=== PATIENT | male | born 1950 | race Caucasian/White ===

== ENCOUNTER 2017-05-06 14:57 | Inpatient (IN) | payer MEDICAID, MEDICARE ==
[2017-05-06 16:23] LABS: Hematocrit 40 % (42-52); Hemoglobin 13.4 g/dl (14.0-18.0); Mean Corpuscular HGB Conc 34 g/dl (31-36); Mean Corpuscular Hemoglobin 30 pg (27-31); Mean Corpuscular Volume 90 fL (80-94); Mean Platelet Volume 8 um3 (7.4-10.4); Red Blood Count 4.44 10^6/ul (4.0-5.4); Red Cell Distribution Width 13 % (10.5-15); White Blood Count 7.8 10^3/ul (3.5-10.8)
[2017-05-06 16:26] LABS: Urine Bilirubin Negative (Negative); Urine Glucose Negative (Negative); Urine Nitrite Negative (Negative)
[2017-05-06 16:35] LABS: ALT 19 U/L (7-52); AST 19 U/L (13-39); Albumin 4.1 g/dL (3.2-5.2); Alkaline Phosphatase 94 U/L (34-104); Anion Gap 7 mmol/L (2-11); BUN/Creatinine Ratio 12.9 (8-20); Blood Urea Nitrogen 24 mg/dL (6-24); CO2 Carbon Dioxide 22 mmol/L (22-32); Chloride 103 mmol/L (101-111); EGFR African American 46.6 (>60); EGFR Non-African American 36.2 (>60); Globulin 2.2 g/dL (2-4); Glucose 128 mg/dL (70-100); Potassium 4.6 mmol/L (3.5-5.0); Sodium 132 mmol/L (133-145); Total Protein 6.3 g/dL (6.4-8.9)
--- NOTE | 2017-05-06 16:36 | RAD ---
INDICATION: Unsteady gait COMPARISON: Similar CT of the brain dated September 29, 2014 TECHNIQUE: Contiguous axial sections of the brain were obtained from the skull base to the vertex without contrast. FINDINGS: The ventricles, cisterns and sulci are within normal limits. The rod-white matter differentiation is adequately maintained and there is no sulcal effacement. No significant focal abnormality or mass effect is present. There is no evidence for intracranial hemorrhage. No significant focal osseous abnormality is present. The visualized portion of the paranasal sinuses and mastoid air cells appear clear. Cerumen is noted in the bilateral external auditory canals, larger on the left than the right. IMPRESSION: 1. No acute intracranial abnormality. 2.Cerumen is noted in the bilateral external auditory canals, larger on the left than the right. Please correlate to direct visualization.
[2017-05-06 16:42] LABS: Acetaminophen < 15 mcg/mL; Alcohol < 10 mg/dL (<10); Salicylate < 2.50 mg/dL (<30)
[2017-05-06 16:45] LABS: Benzodiazepine Urine Screen None Detected (None Detect)
[2017-05-06 16:57] LABS: TSH (Thyroid Stimulating Horm) 2.78 mcIU/mL (0.34-5.60)
[2017-05-07] MEDS ORDERED: Al Hydrox/Mg Hydrox/Simet LIQ* 30 ML UDC PO PRN (02:00)
[2017-05-07] MEDS ORDERED: Acetaminophen TAB* 325 MG PO PRN (02:00)
[2017-05-07] MEDS: Levothyroxine TAB* 125 MCG TAB PO SCH (06:07)
--- NOTE | 2017-05-07 08:29 | ED ---
Cash Canales Angela, scribed for Mandeep Hughes MD on 05/06/17 at 1527 . Psychiatric Complaint - HPI Summary HPI Summary: This pt is a 67 y/o male accompanied by his sister to [facility] c/o SI thoughts for the past 2 weeks. Pt reports he has been a [facility] health patient for 47 years now , which has been controlled with medications. Pt notes he has been suicidal only once before. He states that his SI thoughts have been aggravated by the recent of his mother 2 weeks ago. Pt reports that he has difficulty sleeping just thinking about dying, which scares him. Per sister, the of their mother has altered his normal routine. He denies HI thoughts or plan. Pt additionally c/o losing his balance and getting vertigo after standing up. PMHx includes schizophrenia. - History Of Current Complaint Chief Complaint: [facility] Time Seen by Provider: 05/06/17 15:09 Hx Obtained From: Patient Onset/Duration: Lasting Weeks, Still Present Timing: Weeks Character: Depressed, Fearful Aggravating Factor(s): Other - recent of mother Associated Signs And Symptoms: Positive: Sleep Disturbance Has Suicidal: Reports: Thoughts. Denies: With A Plan Has Homicidal: Denies: Thoughts, With A Plan - Allergies/Home Medications Allergies/Adverse Reactions: Allergies Allergy/AdvReac Type Severity Reaction Status Date / Time Chlordiazepoxide Allergy Unknown Unknown Verified 09/29/14 10:02 [From Librium] Reaction Details [place] Allergy Unknown Unknown Verified 09/29/14 10:02 Reaction Details Oxcarbazepine Allergy Unknown Unknown Verified 09/29/14 10:02 [From Trileptal] Reaction Details PMH/Surg Hx/FS Hx/Imm Hx Endocrine/Hematology History: Reports: Hx Thyroid Disease Cardiovascular History: Reports: Hx Hypertension History: Reports: Other Problems/Disorders - Chronic Kidney DX Psychiatric History: Denies: Hx Eating Disorder, Hx of Violent Episodes Against Others - Surgical History Surgery Procedure, Year, and Place: surgery for diverticulitis 'many yrs ago' Infectious Disease History: No Infectious Disease History: Denies: Traveled Outside the [place] in Last 30 Days - Family History Known Family History: Positive: Other - paternal grandmother: schizophrenia - Social History Alcohol Use: Daily Substance Use Type: Reports: None Smoking Status (MU): Former Smoker Review of Systems Constitutional: Other - losing balance, difficulty sleeping Negative: Fever, Chills Eyes: Negative ENT: Negative Cardiovascular: Negative Neurological: Other - vertigo Psychological: Other - SI thoughts, fearful Negative: Other - HI thoughts and plan All Other Systems Reviewed And Are Negative: Yes Physical Exam - Summary Physical Exam Summary: VITAL SIGNS: Reviewed. GENERAL: Patient is a well-developed and nourished male who is lying comfortable in the stretcher. Patient is not in any acute respiratory distress. HEAD AND FACE: No signs of trauma. No ecchymosis, hematomas or skull depressions. No sinus tenderness. EYES: PERRLA, EOMI x 2, No injected conjunctiva, no nystagmus. EARS: Hearing grossly intact. Ear canals and tympanic membranes are within normal limits. MOUTH: Oropharynx within normal limits. NECK: Supple, trachea is midline, no adenopathy, no JVD, no carotid bruit, no c- spine tenderness, neck with full ROM. CHEST: Symmetric, no tenderness at palpation LUNGS: Clear to auscultation bilaterally. No wheezing or crackles. CVS: Regular rate and rhythm, S1 and S2 present, no murmurs or gallops appreciated. ABDOMEN: Soft, non-tender. No signs of distention. No rebound no guarding, and no masses palpated. Bowel sounds are normal. EXTREMITIES: FROM in all major joints, no edema, no cyanosis or clubbing. NEURO: Alert and oriented x 3. No acute neurological deficits. Speech is normal and follows commands. SKIN: Dry and warm Triage Information Reviewed: Yes Vital Signs On Initial Exam: Initial Vitals Temp Pulse Resp BP Pulse Ox 97.6 F 92 18 148/85 98 05/06/17 15:04 05/06/17 15:04 05/06/17 15:04 05/06/17 15:04 05/06/17 15:04 Vital Signs Reviewed: Yes - Teri Coma Scale Coma Scale Total: 15 Diagnostics - Vital Signs Vital Signs Temp Pulse Resp BP Pulse Ox 05/06/17 15:04 97.6 F 92 18 148/85 98 - Laboratory Result Diagrams: 05/06/17 16:12 05/06/17 16:12 Lab Statement: Any lab studies that have been ordered have been reviewed, and results considered in the medical decision making process. - CT Brain CT CT Interpretation: Positive (See Comments) - IMPRESSION: 1. No acute intracranial abnormality. 2. Cerumen is noted in the bilateral external auditory canals, larger on the left than the right. Please correlate to direct visualization. ED physician has reviewed this radiology report and agrees. CT Interpretation Completed By: Radiologist Course/Dx - Course Assessment/Plan: This pt is a 67 y/o male accompanied by his sister to [facility] c/ o SI thoughts for the past 2 weeks. Pt reports he has been a [facility] patient for 47 years now, which has been controlled with medications. Pt notes he has been suicidal only once before. He states that his SI thoughts have been aggravated by the recent of his mother 2 weeks ago. Pt reports that he has difficulty sleeping just thinking about dying, which scares him. Per sister , the of their mother has altered his normal routine. He denies HI thoughts or plan. Pt additionally c/o losing his balance and getting vertigo after standing up. PMHx includes schizophrenia. All blood work within normal limits. CT brain shows 1. No acute intracranial abnormality. 2. Cerumen is noted in the bilateral external auditory canals, larger on the left than the right. Please correlate to direct visualization. Pt is medically cleared at 1702. Pt is wating for MHE. He will be signed out to the next ER attending to follow up on mental health inspector and sorter's recommendation. - Differential Dx/Clinical Impression Provider Diagnosis: Suicidal ideation Discharge - Discharge Plan Condition: Stable Disposition: OTHER Discharge Disposition Comment: signed out at shift change, pending dispo, awaiting [facility]. Referrals: Raulito Romero MD [Primary Care Provider] - The documentation as recorded by the Cash hewitt Angela accurately reflects the service I personally performed and the decisions made by me, Mandeep Hughes MD.
[2017-05-07] MEDS: Gabapentin CAP(*) 100 MG PO SCH ×3 (09:05→19:56)
[2017-05-07] MEDS: Famotidine TAB* 20 MG PO SCH (09:07)
[2017-05-07] MEDS: Folic Acid TAB* 1 MG PO SCH (09:07)
[2017-05-07] MEDS: Metoprolol Succinate XL TAB* 50 MG PO SCH (09:08)
[2017-05-07] MEDS: Thiamine TAB* 100 MG TAB PO SCH (09:08)
[2017-05-07] MEDS: Vitamin THERAPEUTIC TAB PO SCH (09:08)
[2017-05-07] MEDS: Lisinopril TAB* 10 MG PO SCH (09:08)
[2017-05-07] MEDS: Tamsulosin CAP* 0.4 MG PO SCH (09:08)
--- NOTE | 2017-05-07 16:24 | HP ---
HISTORY AND PHYSICAL: DATE OF ADMISSION: 05/06/17 TIME OF ADMISSION: At 2253. SUPERVISING PSYCHIATRIST: Bret Rodriguez MD * (DICTATED BY MAHIN TIERNEY NP) JUSTIFICATION FOR ADMISSION: The patient admitted on voluntary status due to severe suicidal ideation with a plan. He has a history of schizophrenia and OCD along with medical comorbidities. He merits hospitalization for immediate safety, evaluation, and stabilization. CHIEF COMPLAINT: "Today, this is only the second time in my life I have been suicidal." HISTORY OF PRESENT ILLNESS: The patient is well known to service writer and to unit due to multiple previous psychiatric hospitalizations, chronic schizoaffective disorder, alcohol abuse, in remission. The patient states he is very proud of himself that he has been sober since 09/29/14. He identifies that he is much more mentally stable without overuse of alcohol. He states that he has been medication compliant and denies schizophrenic problem since starting clozapine, started that at [facility]. At that same time, he also underwent ECT. The patient reports his primary stressor this hospitalization is that his mother 2 weeks ago under the care of hospice. Since then, he has had an increase in OCD symptoms and suicidal ideation. He states that he is very very afraid and overwhelmed with having to care for himself. The patient reports enjoying living at the [facility], but that he needs "a couple of days to myself and some space." He reports his mood has been up and down, today it is okay. He states for the past few nights, he has had poor sleep approximately anywhere from 2 to 4 hours per night. He denies offer of medication to help with sleep. He states that he is already on too many medications as it is. This service writer meets with Omer over the lunch hour and he has been visited by his sister and healthcare proxy, Candelaria. They reviewed the time period of the last few weeks and their mother's decline in health. They are able to express appropriate bereavement, emotions and discuss positive memories of their mother. The patient is noted to discuss clozapine regimen and that he is very satisfied with this. He states that this has "solved my schizophrenic problems. " The patient states that he was significantly frightened the other night when he had severe thoughts of suicide and asked to be brought to the hospital. He denies A/V hallucinations. He denies delusions, paranoia. As stated above, he endorses obsessive-compulsive behaviors. He identifies that these thoughts and behaviors are significantly related to the loss of his mother. Previous psychiatric history, diagnosis of chronic psychotic disorder, schizoaffective disorder. He had an onset of his illness in the first year of college leading to a long psychiatric hospitalization. He has been treated at [facility] in [place] and [facility] for ECT therapy. He has had multiple psychiatric admissions to [facility]. His most recent was in September 2014. At that time, his primary stressor was alcoholism. Previous medication trials include lithium, which led to nephrotoxicity, Klonopin, Wellbutrin, quetiapine, Stelazine. He denies danielle suicide attempts. PAST MEDICAL HISTORY: History of lithium nephrotoxicity, hypertension, hypothyroidism, and BPH. ABUSE HISTORY: Denies. SUBSTANCE USE HISTORY: Experimented with hallucinogens in the 60s and has used marijuana on and off over the years. His alcohol intake became problematic especially in 2013 and 2014 and as stated above, he has been sober and clean since September 2014. He is 6 feet 1 inches, approximately 230 pounds. ALLERGIES: Include LITHIUM, TEGRETOL, and CHLORDIAZEPOXIDE. SOCIAL HISTORY: Omer is from the [facility]. He has 2 sisters, who are involved and he lives alone in the [facility]. He has been going to [facility] for many years and currently sees Maria Del Carmen Slaughter. He is on disability. He is never and has no children. He is educated through first year of college. FAMILY HISTORY: His father has been . His mother 2 weeks ago. REVIEW OF SYSTEMS: Constitutional: Negative. No fevers, chills, or fatigue. ENT: Negative. Cardiovascular: Negative. Denies chest pain or palpitations. Respiratory: Negative. Denies shortness of breath or cough. Genitourinary: Negative. Musculoskeletal: Negative. Neurological: Negative. PHYSICAL EXAMINATION GENERAL: Well appearing and well nourished. VITAL SIGNS: Temp 98.2, pulse 104, respiration rate 16, O2 saturation 100%, BP 115/74. HEENT: Head and face: No signs of trauma. No ecchymosis, hematomas, or skull depressions. No sinus tenderness. Eyes: PERRLA. EOMI x2. Conjunctivae clear. Ears: Hearing grossly intact. Mouth, oropharynx within normal limits. Mucous membranes are moist. NECK: Supple. Trachea is midline. Full ROM. RESPIRATORY: Chest symmetric. No tenderness at palpation. Lungs clear to auscultation. CARDIOVASCULAR: Heart RRR. Pulses are symmetrical in both upper and lower extremities. ABDOMEN: Soft, nontender. Bowel sounds x4. EXTREMITIES: Full range of motion in all major joints. NEURO: Alert and oriented x3. Gait is normal. SKIN: Warm and dry. Color reflects adequate perfusion. MENTAL STATUS EXAM: Elderly white male who is well kempt in his own clothing. He has a large marcelo and well groomed rod hair. He is wearing large spectacles. His eye contact is good. His speech is soft and articulate, regular rhythm. He describes his mood is okay. His affect is bright upon approach. His thought process is logical, coherent. There is no evidence of disordered thinking at this time. Thought content is positive for suicidal ideation and bereavement. He is alert and oriented x3. Insight and judgment is good and fund of knowledge is excellent. LABORATORY DATA: CBC is grossly unremarkable, slightly low H and H at 13.4 and 40. Chemistry, 132 sodium, creatinine 1.86, glucose 128. Total protein 6.3. TSH normal at 2.78. Urinalysis is within normal limits. Toxicology negative for salicylates, acetaminophen, and serum alcohol and urine drug screen is negative. DIAGNOSES: 1. Bereavement. 2. Schizoaffective disorder. 3. Alcohol use disorder, in remission. 4. Hypertension. 5. Hypothyroidism. 6. Benign prostatic hypertrophy. ASSESSMENT: Mr. Neville is a 67-year-old white male with a long history of chronic schizoaffective disorder and alcohol use disorder, now in remission for 2 and a half years. His mother 2 weeks ago and he has had increasing suicidal ideations that have frightened him. He is overwhelmed with the thought of having to care for himself. He lives in [facility] and likes this. He reports feeling supported but also wants to have some time and space to himself to grieve for a few days. He is on clozapine protocol and no changes are necessary at this time. TREATMENT PLAN: Admit to adult behavioral services unit on voluntary status. Code status is full. Safety checks every 15 minutes, can be decreased to q.30 minutes after 24 hours of admission. Initiate intensive milieu and individual sessions with staff and psychoeducational groups. Medication management will involve continuing his outpatient regimen and he denies need for medication changes at this time. Estimated length of stay is 3 to 5 days. Discharge planning will involve [facility], family and outpatient providers with the patient's consent. MAHIN TIERNEY NP [id number]/CPS #: [id number] BOB
[2017-05-07] MEDS: CloZAPine TAB* 100 MG TAB PO SCH (19:55)
[2017-05-08] MEDS: Levothyroxine TAB* 125 MCG TAB PO SCH (06:07)
[2017-05-08] MEDS: Tamsulosin CAP* 0.4 MG PO SCH (08:38)
[2017-05-08] MEDS: Famotidine TAB* 20 MG PO SCH (08:38)
[2017-05-08] MEDS: Metoprolol Succinate XL TAB* 50 MG PO SCH (08:38)
[2017-05-08] MEDS: Vitamin THERAPEUTIC TAB PO SCH (08:38)
[2017-05-08] MEDS: Lisinopril TAB* 10 MG PO SCH (08:38)
[2017-05-08] MEDS: Gabapentin CAP(*) 100 MG PO SCH ×3 (08:38→20:24)
[2017-05-08] MEDS: Folic Acid TAB* 1 MG PO SCH (08:38)
[2017-05-08] MEDS: Thiamine TAB* 100 MG TAB PO SCH (08:39)
--- NOTE | 2017-05-08 14:44 | PN ---
Subjective - Subjective Service Type: 36157 Hosp care 15 min low complexity Subjective: The patient feels safe here on the unit. He is in the day area, going to groups and appears to be calm and in control of his actions. On exam he states that he is quite grieved by the recent of his mother and that he doesn't need any changes in his medications, but just needs a setting to be with his emotions and not be alone. He denies SI or HI. "It's not medical or schizophrenic what I'm going through. ""They used the word 'bereavement' in the Emergency Room and that's just what I'm going through." Objective - Appearance Appearance: Well Developed/Nourished Dysmorphic Features: No Hygiene: Normal Grooming: Well Kept - Behavior Psychomotor Activities: Normal Exhibits Abnormal Movement: No - Attitude and Relatedness Attitude and Relatedness: Cooperative Eye Contact: Fair - Speech Quality: Unpressured Latencies: Normal Quantity: Appropriate - Mood Patient's Decription of Mood: "Sad" - Affect Observed Affect: Fair Affect Consistent with: Dysphoria - Thought Process Patient's Thought Process: Coherent Thought Content: No Passive Wish, No Suicidal Planning, No Homicidal Ideation, No Paranoid Ideation - Sensorium Experiencing Hallucinations: No, Sensorium is Clear Type of Hallucinations: Visual: No, Auditory: No, Command: No - Level of Consciousness Level of Consciousness: Alert Orientation: Yes Intact, Yes Orientated to Time, Yes Orientated to Place, Yes Orientated to Person - Impulse Control Impulse Control: Tenuous - Insight and Judgement Insight and Judgement: Fair - Group Participation Particating in Group Activities: Yes - Medication Management Medication Management Adherence: Yes Assessment - Assessment Merits Inpatient Hospitalization: Consolidate Improvements, Pending Safe DC Plan Inpatient DSM-IV Dx: Schizophrenia Clinical Impression: 67 y.o. white male with a history of schizoaffective DO presented to ED, seeking voluntary admission to the [facility] for extreme grief over the recent of his mother and suicidal ideations. Plan - Plan Treatment Plan: Name: SCOTT TUCKER Birthdate: 1950 [id number] We have continued the patient's outpatient medication regimen, including clozapine 300mg PO qhs and gabapentin 100mg PO TID. He is going to groups and participating in milieu supportive care. Continue inpatient level services. Medications: Current Medications Acetaminophen (Tylenol Tab*) 650 mg PO Q4H PRN PRN Reason: PAIN or TEMP > 101 F Al Hydrox/Mg Hydrox/Simethicone (Maalox Plus*) 30 ml PO Q4H PRN PRN Reason: INDIGESTION Clozapine (Clozapine Tab*) 300 mg PO BEDTIME [facility] Last Admin: 05/07/17 19:55 Dose: 300 mg Famotidine (Pepcid Tab*) 20 mg PO DAILY [facility] Last Admin: 05/08/17 08:38 Dose: 20 mg Folic Acid (Folvite Tab*) 1 mg PO DAILY [facility] Last Admin: 05/08/17 08:38 Dose: 1 mg Gabapentin (Neurontin Cap(*)) 100 mg PO TID [facility] Last Admin: 05/08/17 13:23 Dose: 100 mg Levothyroxine Sodium (Synthroid Tab*) 125 mcg PO DAILY@0600 [facility] Last Admin: 05/08/17 06:07 Dose: 125 mcg Lisinopril [facility]inivil [facility]*) [facility] Admin: 05/08/17 08:38 Dose: 20 mg Metoprolol Succinate (Toprol Xl Tab*) [facility] [place] Last Admin: 05/08/17 08:38 Dose: 50 mg Multivitamins (Theragran Tab*) 1 tab PO DAILY [facility] Last Admin: 05/08/17 08:38 Dose: 1 tab Tamsulosin HCl (Flomax Cap*) [facility] [place] Last Admin: 05/08/17 08:38 Dose: 0.4 mg Thiamine HCl (Vitamin B-1 Tab*) [facility] [place] [place] Last Admin: 05/08/17 08:39 Dose: 100 mg
[2017-05-08] MEDS: CloZAPine TAB* 100 MG TAB PO SCH (20:23)
[2017-05-09] MEDS: Levothyroxine TAB* 125 MCG TAB PO SCH (06:30)
[2017-05-09] MEDS: Folic Acid TAB* 1 MG PO SCH (08:44)
[2017-05-09] MEDS: Lisinopril TAB* 10 MG PO SCH (08:44)
[2017-05-09] MEDS: Tamsulosin CAP* 0.4 MG PO SCH (08:44)
[2017-05-09] MEDS: Famotidine TAB* 20 MG PO SCH (08:44)
[2017-05-09] MEDS: Vitamin THERAPEUTIC TAB PO SCH (08:44)
[2017-05-09] MEDS: Metoprolol Succinate XL TAB* 50 MG PO SCH (08:45)
[2017-05-09] MEDS: Gabapentin CAP(*) 100 MG PO SCH ×3 (08:45→20:11)
[2017-05-09] MEDS: Thiamine TAB* 100 MG TAB PO SCH (08:45)
[2017-05-09] MEDS: CloZAPine TAB* 100 MG TAB PO SCH (20:10)
[2017-05-10] MEDS: Levothyroxine TAB* 125 MCG TAB PO SCH (06:00)
[2017-05-10 08:10] LABS: HDL Cholesterol 46.9 mg/dL
[2017-05-10] MEDS: Vitamin THERAPEUTIC TAB PO SCH (08:26)
[2017-05-10] MEDS: Folic Acid TAB* 1 MG PO SCH (08:27)
[2017-05-10] MEDS: Metoprolol Succinate XL TAB* 50 MG PO SCH (08:27)
[2017-05-10] MEDS: Tamsulosin CAP* 0.4 MG PO SCH (08:27)
[2017-05-10] MEDS: Gabapentin CAP(*) 100 MG PO SCH ×3 (08:27→20:09)
[2017-05-10] MEDS: Famotidine TAB* 20 MG PO SCH (08:27)
[2017-05-10] MEDS: Lisinopril TAB* 10 MG PO SCH (08:28)
[2017-05-10] MEDS: Thiamine TAB* 100 MG TAB PO SCH (08:28)
--- NOTE | 2017-05-10 11:41 | PN ---
MHU: Group Therapy Note - Service Type Service Type: [id number] Group Psychotherapy - Cognitive Behavioral Group Therapy ( CBT):Patient was attentive and participatory in CBT programming this morning, and remained in good behavioral control. Patient expressed positive insights regarding relevant treatment interventions and goals.
--- NOTE | 2017-05-10 15:17 | PN ---
Subjective - Subjective Service Type: 46477 Hosp care 15 min low complexity Subjective: Patient presents as dysphoric, pleasant upon approach. He reports continued grief re: mother's . He states he woke with the thought "mommy is , there's no other way around it." He states he expects to remain in hospital until feeling more safe to return to [facility]. Patient states he is sleeping well and benefitting from "catching up on sleep." Patient met with his sister and hospice therapist over lunch. They are beginning to settle his mother's estate and will be bringing a probate to notarize paperwork. Patient, his sister and treatment team are in agreement that Al is at full capacity to do so and that this environment is the optimal setting. Objective - Appearance Appearance: Well Developed/Nourished Dysmorphic Features: Yes Hygiene: Normal Grooming: Well Kept - Behavior Psychomotor Activities: Normal Exhibits Abnormal Movement: No - Attitude and Relatedness Attitude and Relatedness: Cooperative Eye Contact: Good - Speech Quality: Unpressured Latencies: Normal Quantity: Appropriate - Mood Patient's Decription of Mood: "Sad" - Affect Observed Affect: Good Affect Consistent with: Dysphoria - Thought Process Patient's Thought Process: Coherent, Goal Directed Thought Content: No Passive Wish, No Suicidal Planning, No Homicidal Ideation, No Paranoid Ideation - Sensorium Experiencing Hallucinations: No, Sensorium is Clear Type of Hallucinations: Visual: No, Auditory: No, Command: No - Level of Consciousness Level of Consciousness: Alert Orientation: Yes Intact, Yes Orientated to Time, Yes Orientated to Place, Yes Orientated to Person - Impulse Control Impulse Control: Intact - Insight and Judgement Insight and Judgement: Good - Group Participation Particating in Group Activities: Yes - Medication Management Medication Management Adherence: Yes Assessment - Assessment Merits Inpatient Hospitalization: For Immediate Safety, For Stabilization, Consolidate Improvements, Pending Safe DC Plan Inpatient DSM-IV Dx: Schizophrenia; bereavement Clinical Impression: Scott is a 67yo white male with long hx of psychiatric treatment. He is currently grieving the of his mother two weeks ago. He presented voluntarily due to severe SI. He merits hospitalization for immediate safety and stabilization. Plan - Plan Treatment Plan: Name: SCOTT TUCKER Birthdate: 1950 [id number] Continue acute psychiatric treatment. Continue outpatient medications. Decrease to q30min observation and allow staff pass. Continued Medication Management: Continue Outpt Medication Medications: Current Medications Acetaminophen (Tylenol Tab*) 650 mg PO Q4H PRN PRN Reason: PAIN or TEMP > 101 F Al Hydrox/Mg Hydrox/Simethicone (Maalox Plus*) 30 ml PO Q4H PRN PRN Reason: INDIGESTION Clozapine (Clozapine Tab*) 300 mg PO BEDTIME [facility] Last Admin: 05/09/17 20:10 Dose: 300 mg Famotidine (Pepcid Tab*) 20 mg PO DAILY [facility] Last Admin: 05/10/17 08:27 Dose: 20 mg Folic Acid (Folvite Tab*) 1 mg PO DAILY [facility] Last Admin: 05/10/17 08:27 Dose: 1 mg Gabapentin (Neurontin Cap(*)) 100 mg PO TID [facility] Last Admin: 05/10/17 13:40 Dose: 100 mg Levothyroxine Sodium (Synthroid Tab*) 125 mcg PO DAILY@0600 [facility] Last Admin: 05/10/17 06:00 Dose: 125 mcg Lisinopril (Prinivil Tab*) 20 mg PO QAM [facility] Last Admin: 05/10/17 08:28 Dose: 20 mg Metoprolol Succinate (Toprol Xl Tab*) [facility] Last Admin: 05/10/17 08:27 Dose: 50 mg Multivitamins (Theragran Tab*) 1 tab PO DAILY [facility] Last Admin: 05/10/17 08:26 Dose: 1 tab Tamsulosin HCl (Flomax Cap*) 0.4 mg PO [facility] Last Admin: 05/10/17 08:27 Dose: 0.4 mg Thiamine HCl (Vitamin B-1 Tab*) 100 mg PO QAM [facility] Last Admin: 05/10/17 08:28 Dose: 100 mg - Discharge Plan Discharge Plan: Outpatient Follow Up Outpatient Program: [facility]
[2017-05-10] MEDS: CloZAPine TAB* 100 MG TAB PO SCH (20:09)
[2017-05-11] MEDS: Levothyroxine TAB* 125 MCG TAB PO SCH (06:15)
[2017-05-11] MEDS: Metoprolol Succinate XL TAB* 50 MG PO SCH (08:13)
[2017-05-11] MEDS: Vitamin THERAPEUTIC TAB PO SCH (08:13)
[2017-05-11] MEDS: Tamsulosin CAP* 0.4 MG PO SCH (08:13)
[2017-05-11] MEDS: Famotidine TAB* 20 MG PO SCH (08:14)
[2017-05-11] MEDS: Gabapentin CAP(*) 100 MG PO SCH ×3 (08:14→20:14)
[2017-05-11] MEDS: Thiamine TAB* 100 MG TAB PO SCH (08:14)
[2017-05-11] MEDS: Folic Acid TAB* 1 MG PO SCH (08:14)
[2017-05-11] MEDS: Lisinopril TAB* 10 MG PO SCH (08:14)
--- NOTE | 2017-05-11 11:33 | PN ---
MHU: Group Therapy Note - Service Type Service Type: [id number] Group Psychotherapy - Cognitive Behavioral Group Therapy ( CBT):Patient was attentive and participatory in CBT programming this morning, and remained in good behavioral control. Patient expressed positive insights regarding relevant treatment interventions and goals.
--- NOTE | 2017-05-11 17:13 | PN ---
Subjective - Subjective Service Type: [id number] Hosp care 15 min low complexity Subjective: Patient presents as dysphoric with restricted affect. He is pleasant upon approach. He states that he is no longer having suicidal ideation but is concerned about loneliness and grief upon return home. He states that milieu and structure of groups are helpful. Objective - Appearance Appearance: Well Developed/Nourished Dysmorphic Features: Yes Hygiene: Normal Grooming: Well Kept - Behavior Psychomotor Activities: Normal Exhibits Abnormal Movement: No - Attitude and Relatedness Attitude and Relatedness: Cooperative Eye Contact: Good - Speech Quality: Unpressured Latencies: Normal Quantity: Appropriate - Mood Patient's Decription of Mood: "Okay" - Affect Observed Affect: Depressed Affect Consistent with: Dysphoria - Thought Process Patient's Thought Process: Coherent, Goal Directed Thought Content: No Passive Wish, No Suicidal Planning, No Homicidal Ideation, No Paranoid Ideation - Sensorium Experiencing Hallucinations: No, Sensorium is Clear Type of Hallucinations: Visual: No, Auditory: No, Command: No - Level of Consciousness Level of Consciousness: Alert Orientation: Yes Intact, Yes Orientated to Time, Yes Orientated to Place, Yes Orientated to Person - Impulse Control Impulse Control: Tenuous - Insight and Judgement Insight and Judgement: Good - Group Participation Particating in Group Activities: Yes - Medication Management Medication Management Adherence: Yes Assessment - Assessment Merits Inpatient Hospitalization: For Immediate Safety, For Stabilization, Consolidate Improvements Inpatient DSM-IV Dx: Schizophrenia; bereavement Clinical Impression: Scott is a 67yo white male with long hx of psychiatric treatment. He is currently grieving the of his mother two weeks ago. He presented voluntarily due to severe SI. He merits hospitalization for immediate safety and stabilization. Plan - Plan Treatment Plan: Name: SCOTT TUCKER Birthdate: 1950 [id number] Continue acute psychiatric treatment. Continue outpatient medications. Decrease to q30min observation and allow staff pass. Continued Medication Management: Continue Outpt Medication Medications: Current Medications Acetaminophen (Tylenol Tab*) 650 mg PO Q4H PRN PRN Reason: PAIN or TEMP > 101 F Al Hydrox/Mg Hydrox/Simethicone (Maalox Plus*) 30 ml PO Q4H PRN PRN Reason: INDIGESTION Clozapine (Clozapine Tab*) 300 mg PO BEDTIME [facility] Last Admin: 05/10/17 20:09 Dose: 300 mg Famotidine (Pepcid Tab*) 20 mg PO DAILY [facility] Last Admin: 05/11/17 08:14 Dose: 20 mg Folic Acid (Folvite Tab*) 1 mg PO DAILY [facility] Last Admin: 05/11/17 08:14 Dose: 1 mg Gabapentin (Neurontin Cap(*)) 100 mg PO TID [facility] Last Admin: 05/11/17 13:54 Dose: 100 mg Levothyroxine Sodium (Synthroid Tab*) 125 mcg PO DAILY@0600 [facility] Last Admin: 05/11/17 06:15 Dose: 125 mcg Lisinopril (Prinivil Tab*) 20 mg PO QAM [facility] Last Admin: 05/11/17 08:14 Dose: 20 mg Metoprolol Succinate (Toprol Xl Tab*) 50 mg PO QAM [facility] Last Admin: 05/11/17 08:13 Dose: 50 mg Multivitamins (Theragran Tab*) 1 tab PO DAILY [facility] Last Admin: 05/11/17 08:13 Dose: 1 tab Tamsulosin HCl (Flomax Cap*) [facility] Last Admin: 05/11/17 08:13 Dose: 0.4 mg Thiamine HCl (Vitamin B-1 Tab*) 100 mg PO QAM [facility] Last Admin: 05/11/17 08:14 Dose: 100 mg - Discharge Plan Discharge Plan: Outpatient Follow Up Outpatient Program: [facility]
[2017-05-11] MEDS: CloZAPine TAB* 100 MG TAB PO SCH (20:15)
[2017-05-12] MEDS: Levothyroxine TAB* 125 MCG TAB PO SCH (06:35)
[2017-05-12] MEDS: Tamsulosin CAP* 0.4 MG PO SCH (08:32)
[2017-05-12] MEDS: Lisinopril TAB* 10 MG PO SCH (08:32)
[2017-05-12] MEDS: Metoprolol Succinate XL TAB* 50 MG PO SCH (08:32)
[2017-05-12] MEDS: Gabapentin CAP(*) 100 MG PO SCH ×3 (08:32→20:02)
[2017-05-12] MEDS: Famotidine TAB* 20 MG PO SCH (08:32)
[2017-05-12] MEDS: Vitamin THERAPEUTIC TAB PO SCH (08:32)
[2017-05-12] MEDS: Folic Acid TAB* 1 MG PO SCH (08:33)
[2017-05-12] MEDS: Thiamine TAB* 100 MG TAB PO SCH (08:33)
--- NOTE | 2017-05-12 16:42 | PN ---
Subjective - Subjective Service Type: 53442 Hosp care 25 min moderate complexity Subjective: Spoke with patient for approx 30min this afternoon. He speaks of using mathematical problems to solve in his mind when lying down to go to sleep. We discuss use of these skills to help with cognitive functioning in later life. He brightens and states that his girlfriend's doctor has encouraged her to be tutored by him to work on algebraic equations. Patient goes on to describe an experiment he is working on with a small transmitter radio and chilled water. 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 Patient's affect flattens when discussing the passing of his mother. He states "that is the crux of the problem." He states he and his sisters are comforted by presence of God in their lives. Objective - Appearance Appearance: Well Developed/Nourished Dysmorphic Features: Yes Hygiene: Normal Grooming: Well Kept - Behavior Psychomotor Activities: Normal Exhibits Abnormal Movement: No - Attitude and Relatedness Attitude and Relatedness: Cooperative Eye Contact: Good - Speech Quality: Unpressured Latencies: Normal Quantity: Appropriate - Mood Patient's Decription of Mood: "Sad" - Affect Observed Affect: Depressed Affect Consistent with: Dysphoria - Thought Process Patient's Thought Process: Coherent, Goal Directed Thought Content: No Passive Wish, No Suicidal Planning, No Homicidal Ideation, No Paranoid Ideation - Sensorium Experiencing Hallucinations: No, Sensorium is Clear Type of Hallucinations: Visual: No, Auditory: No, Command: No - Level of Consciousness Level of Consciousness: Alert Orientation: Yes Intact, Yes Orientated to Time, Yes Orientated to Place, Yes Orientated to Person - Impulse Control Impulse Control: Tenuous - Insight and Judgement Insight and Judgement: Good - Group Participation Particating in Group Activities: Yes - Medication Management Medication Management Adherence: Yes Assessment - Assessment Merits Inpatient Hospitalization: For Immediate Safety, For Stabilization, Consolidate Improvements, Pending Safe DC Plan Inpatient DSM-IV Dx: Schizophrenia; bereavement Clinical Impression: Scott is a 67yo white male with long hx of psychiatric treatment. He is currently grieving the of his mother two weeks ago. He presented voluntarily due to severe SI. He merits hospitalization for immediate safety and stabilization. Plan - Plan Treatment Plan: Name: SCOTT TUCKER Birthdate: 1950 [id number] Continue acute psychiatric treatment. Continue outpatient medications. Decrease to q30min observation and allow staff pass. Continued Medication Management: Continue Outpt Medication Medications: Current Medications Acetaminophen (Tylenol Tab*) 650 mg PO Q4H PRN PRN Reason: PAIN or TEMP > 101 F Al Hydrox/Mg Hydrox/Simethicone (Maalox Plus*) 30 ml PO Q4H PRN PRN Reason: INDIGESTION Clozapine (Clozapine Tab*) 300 mg PO BEDTIME [facility] Last Admin: 05/11/17 20:15 Dose: 300 mg Famotidine (Pepcid Tab*) 20 mg PO DAILY [facility] Last Admin: 05/12/17 08:32 Dose: 20 mg Folic Acid (Folvite Tab*) 1 mg PO DAILY [facility] Last Admin: 05/12/17 08:33 Dose: 1 mg Gabapentin (Neurontin Cap(*)) 100 mg PO TID [facility] Last Admin: 05/12/17 13:49 Dose: 100 mg Levothyroxine Sodium (Synthroid Tab*) 125 mcg PO DAILY@0600 [facility] Last Admin: 05/12/17 06:35 Dose: 125 mcg Lisinopril (Prinivil Tab*) [facility] [place] Last Admin: 05/12/17 08:32 Dose: 20 mg Metoprolol Succinate (Toprol Xl Tab*) 50 mg PO QAM [facility] Last Admin: 05/12/17 08:32 Dose: 50 mg Multivitamins (Theragran Tab*) 1 tab PO DAILY [facility] Last Admin: 05/12/17 08:32 Dose: 1 tab Tamsulosin HCl (Flomax Cap*) [facility] Last Admin: 05/12/17 08:32 Dose: 0.4 mg Thiamine HCl (Vitamin B-1 Tab*) 100 mg PO QAM [facility] Last Admin: 05/12/17 08:33 Dose: 100 mg - Discharge Plan Discharge Plan: Outpatient Follow Up Outpatient Program: [facility]
[2017-05-12] MEDS: CloZAPine TAB* 100 MG TAB PO SCH (20:02)
[2017-05-13] MEDS: Levothyroxine TAB* 125 MCG TAB PO SCH (06:22)
[2017-05-13] MEDS: Thiamine TAB* 100 MG TAB PO SCH (08:32)
[2017-05-13] MEDS: Tamsulosin CAP* 0.4 MG PO SCH (08:32)
[2017-05-13] MEDS: Vitamin THERAPEUTIC TAB PO SCH (08:32)
[2017-05-13] MEDS: Gabapentin CAP(*) 100 MG PO SCH ×3 (08:32→19:58)
[2017-05-13] MEDS: Metoprolol Succinate XL TAB* 50 MG PO SCH (08:32)
[2017-05-13] MEDS: Folic Acid TAB* 1 MG PO SCH (08:32)
[2017-05-13] MEDS: Famotidine TAB* 20 MG PO SCH (08:33)
[2017-05-13] MEDS: Lisinopril TAB* 10 MG PO SCH (08:33)
--- NOTE | 2017-05-13 13:13 | PN ---
MHU: Group Therapy Note - Service Type Service Type: [id number] Group Psychotherapy - Cognitive Behavioral Group Therapy ( CBT):Patient was attentive and participatory in CBT programming this morning, and remained in good behavioral control. Patient expressed positive insights regarding relevant treatment interventions and goals.
--- NOTE | 2017-05-13 16:38 | PN ---
MHU: Group Therapy Note - Service Type Service Type: [id number] Group Psychotherapy - Medication Education Group: Patient was attentive and participatory in group, and remained in good behavioral control. Patient expressed positive insights regarding relevant treatment interventions. Patient stated understanding of material discussed and had appropriate questions.
[2017-05-13] MEDS: CloZAPine TAB* 100 MG TAB PO SCH (19:59)
[2017-05-14] MEDS: Levothyroxine TAB* 125 MCG TAB PO SCH (06:00)
[2017-05-14] MEDS: Famotidine TAB* 20 MG PO SCH (08:16)
[2017-05-14] MEDS: Vitamin THERAPEUTIC TAB PO SCH (08:17)
[2017-05-14] MEDS: Thiamine TAB* 100 MG TAB PO SCH (08:18)
[2017-05-14] MEDS: Folic Acid TAB* 1 MG PO SCH (08:19)
[2017-05-14] MEDS: Gabapentin CAP(*) 100 MG PO SCH ×3 (08:19→20:01)
[2017-05-14] MEDS: Tamsulosin CAP* 0.4 MG PO SCH (08:20)
[2017-05-14] MEDS: Metoprolol Succinate XL TAB* 50 MG PO SCH (08:34)
[2017-05-14] MEDS: Lisinopril TAB* 10 MG PO SCH (08:34)
--- NOTE | 2017-05-14 11:48 | PN ---
MHU: Group Therapy Note - Service Type Service Type: [id number] Group Psychotherapy - Cognitive Behavioral Group Therapy ( CBT):Patient was attentive and participatory in CBT programming this morning, and remained in good behavioral control. Patient expressed positive insights regarding relevant treatment interventions and goals.
--- NOTE | 2017-05-14 15:26 | PN ---
Subjective - Subjective Service Type: [id number] Hosp care 15 min low complexity Subjective: Patient presents as dysphoric with flat affect. He states his mood is "not good. " He denies need in medication change and hopes to remain here "a few more days." Patient is empowered to utilize fully hospital admission and notify staff/team when he is ready for discharge. Objective - Appearance Appearance: Well Developed/Nourished Dysmorphic Features: Yes Hygiene: Normal Grooming: Well Kept - Behavior Psychomotor Activities: Normal Exhibits Abnormal Movement: No - Attitude and Relatedness Attitude and Relatedness: Cooperative Eye Contact: Fair - Speech Quality: Unpressured Latencies: Normal Quantity: Appropriate - Mood Patient's Decription of Mood: "not good" - Affect Observed Affect: Depressed Affect Consistent with: Dysphoria - Thought Process Patient's Thought Process: Coherent, Goal Directed Thought Content: No Passive Wish, No Suicidal Planning, No Homicidal Ideation, No Paranoid Ideation - Sensorium Experiencing Hallucinations: No, Sensorium is Clear Type of Hallucinations: Visual: No, Auditory: No, Command: No - Level of Consciousness Level of Consciousness: Alert Orientation: Yes Intact, Yes Orientated to Time, Yes Orientated to Place, Yes Orientated to Person - Impulse Control Impulse Control: Intact - Insight and Judgement Insight and Judgement: Good - Group Participation Particating in Group Activities: Yes - Medication Management Medication Management Adherence: Yes Assessment - Assessment Merits Inpatient Hospitalization: Consolidate Improvements, Pending Safe DC Plan Inpatient DSM-IV Dx: Schizophrenia; bereavement Clinical Impression: Scott is a 67yo white male with long hx of psychiatric treatment. He is currently grieving the of his mother two weeks ago. He presented voluntarily due to severe SI. He merits hospitalization for immediate safety and stabilization. Plan - Plan Treatment Plan: Name: SCOTT TUCKER Birthdate: 1950 [id number] Continue acute psychiatric treatment. Continue outpatient medications. Decrease to q30min observation and allow staff pass. Continued Medication Management: Continue Outpt Medication Medications: Current Medications Acetaminophen (Tylenol Tab*) 650 mg PO Q4H PRN PRN Reason: PAIN or TEMP > 101 F Al Hydrox/Mg Hydrox/Simethicone (Maalox Plus*) 30 ml PO Q4H PRN PRN Reason: INDIGESTION Clozapine (Clozapine Tab*) 300 mg PO BEDTIME [facility] Last Admin: 11/30/17 19:59 Dose: 300 mg Famotidine (Pepcid Tab*) 20 mg PO DAILY [facility] Last Admin: 05/14/17 08:16 Dose: 20 mg Folic Acid (Folvite Tab*) 1 mg PO DAILY [facility] Last Admin: 05/14/17 08:19 Dose: 1 mg Gabapentin (Neurontin Cap(*)) 100 mg PO TID [facility] Last Admin: 05/14/17 14:05 Dose: 100 mg Levothyroxine Sodium (Synthroid Tab*) 125 mcg PO DAILY@0600 [facility] Last Admin: 05/14/17 06:00 Dose: 125 mcg Lisinopril (Prinivil Tab*) 20 mg PO QAM [facility] Last Admin: 05/14/17 08:34 Dose: 20 mg Metoprolol Succinate (Toprol Xl Tab*) 50 mg PO QAM [facility] Last Admin: 05/14/17 08:34 Dose: 50 mg Multivitamins (Theragran Tab*) 1 tab PO DAILY [facility] Last Admin: 05/14/17 08:17 Dose: 1 tab Tamsulosin HCl (Flomax Cap*) [facility] Last Admin: 05/14/17 08:20 Dose: 0.4 mg Thiamine HCl (Vitamin B-1 Tab*) [facility] [place] Last Admin: 05/14/17 08:18 Dose: 100 mg - Discharge Plan Discharge Plan: Outpatient Follow Up Outpatient Program: [facility]
[2017-05-14] MEDS: CloZAPine TAB* 100 MG TAB PO SCH (20:00)
[2017-05-15] MEDS: Levothyroxine TAB* 125 MCG TAB PO SCH (06:05)
[2017-05-15] MEDS: Gabapentin CAP(*) 100 MG PO SCH ×3 (08:28→20:02)
[2017-05-15] MEDS: Famotidine TAB* 20 MG PO SCH (08:28)
[2017-05-15] MEDS: Tamsulosin CAP* 0.4 MG PO SCH (08:28)
[2017-05-15] MEDS: Metoprolol Succinate XL TAB* 50 MG PO SCH (08:28)
[2017-05-15] MEDS: Lisinopril TAB* 10 MG PO SCH (08:28)
[2017-05-15] MEDS: Folic Acid TAB* 1 MG PO SCH (08:28)
[2017-05-15] MEDS: Vitamin THERAPEUTIC TAB PO SCH (08:29)
[2017-05-15] MEDS: Thiamine TAB* 100 MG TAB PO SCH (08:29)
[2017-05-15] MEDS: CloZAPine TAB* 100 MG TAB PO SCH (20:03)
[2017-05-16] MEDS: Levothyroxine TAB* 125 MCG TAB PO SCH (06:12)
[2017-05-16] MEDS: Folic Acid TAB* 1 MG PO SCH (08:12)
[2017-05-16] MEDS: Vitamin THERAPEUTIC TAB PO SCH (08:12)
[2017-05-16] MEDS: Thiamine TAB* 100 MG TAB PO SCH (08:12)
[2017-05-16] MEDS: Tamsulosin CAP* 0.4 MG PO SCH (08:12)
[2017-05-16] MEDS: Gabapentin CAP(*) 100 MG PO SCH ×3 (08:12→20:08)
[2017-05-16] MEDS: Lisinopril TAB* 10 MG PO SCH (08:13)
[2017-05-16] MEDS: Famotidine TAB* 20 MG PO SCH (08:13)
[2017-05-16] MEDS: Metoprolol Succinate XL TAB* 50 MG PO SCH (08:14)
[2017-05-16] MEDS: CloZAPine TAB* 100 MG TAB PO SCH (20:08)
[2017-05-17] MEDS: Levothyroxine TAB* 125 MCG TAB PO SCH (06:04)
[2017-05-17 07:28] VITALS: BP 101/47
[2017-05-17] MEDS: Famotidine TAB* 20 MG PO SCH (08:24)
[2017-05-17] MEDS: Tamsulosin CAP* 0.4 MG PO SCH (08:24)
[2017-05-17] MEDS: Vitamin THERAPEUTIC TAB PO SCH (08:24)
[2017-05-17] MEDS: Gabapentin CAP(*) 100 MG PO SCH (08:24)
[2017-05-17] MEDS: Folic Acid TAB* 1 MG PO SCH (08:24)
[2017-05-17] MEDS: Thiamine TAB* 100 MG TAB PO SCH (08:25)
[2017-05-17] MEDS: Lisinopril TAB* 10 MG PO SCH (08:33)
[2017-05-17] MEDS: Metoprolol Succinate XL TAB* 50 MG PO SCH (08:33)
--- NOTE | 2017-05-18 03:06 | DS ---
CC: [facility]; Dr. Romero * DISCHARGE SUMMARY: DATE OF ADMISSION: 05/06/17 DATE OF DISCHARGE: 05/17/17 SUPERVISING PSYCHIATRIST: Dr. Bret Rodriguez * (DICTATED BY MAHIN TIERNEY NP) DISCHARGE DIAGNOSES: Bereavement and schizoaffective disorder, bipolar type. MENTAL STATUS EXAM AT THE TIME OF DISCHARGE: Elderly white male who is well kempt in his own clothing. He has a large marcelo and well-groomed rod hair. He is wearing large spectacles. He is alert and oriented x3. His eye contact is good. His speech is soft and articulate with regular volume, regular rhythm. He reports his mood is "great." His affect is bright and congruent. His thought process is logical, coherent, and goal directed. Thought content is negative for SI, delusions, or paranoia. His insight and judgment are good. His fund of knowledge is excellent. DISCHARGE INSTRUCTIONS GIVEN TO THE PATIENT: A. Medications: He will continue his outpatient medication as there were no changes during his admission. 1. Clozapine 300 mg p.o. q.h.s. 2. Cimetidine 20 mg p.o. daily. 3. Folic acid 1 mg p.o. daily. 4. Gabapentin 100 mg p.o. t.i.d. 5. Levothyroxine 125 mcg at 0600. 6. Lisinopril 20 mg p.o. q.a.m. 7. Metoprolol succinate 50 mg p.o. q.a.m. 8. Multivitamin 1 tab p.o. daily. 9. Tamsulosin 0.4 mg p.o. q.a.m. 10. Thiamine 100 mg p.o. q.a.m. B. Diet is regular. C. Activities: Ambulation as tolerated. Tobacco cessation is not applicable. There are no labs or diagnostic studies at the time of discharge. The patient is notified that his next CBC blood draw for clozapine therapy is due on June 03. D. Substance abuse followup is not applicable. HOSPITAL COURSE: Part A. Reason for admission: The patient presented to the emergency department with severe suicidal ideation and a plan. He relayed this to reason passing of his mother with whom he was very close. The patient was admitted on voluntary status to the adult [facility]. Part B. Psychiatric treatment rendered: The patient was agreeable to voluntary admission. His code status was full. He was placed on 15-minute checks for safety and encouraged to participate in supportive, milieu, individual sessions with staff and psychoeducational groups. He fully participated in treatment. He reported that the of his mother 2 weeks ago has been very hard for him and his siblings. The patient denied audio or visual hallucinations. He denied delusions or paranoia. He reported medication adherence of clozapine and states that this medication has resolved schizophrenic symptoms for some time. The patient endorsed depressed mood and suicidal ideation and endorsed grieving his mother's . He endorsed anxiety and feeling overwhelmed in regards to having to care for himself. He states that he lives at [facility] and he enjoys this environment. He denied alcohol use since his most recent admission to the [facility] in September 2014. The patient denied need for medication changes and stated he was looking for hospital admission for the safety and structure of the environment. The patient denied suicidal ideation while on the unit. He was safe on all checks. He was decreased to q.30- minute observation and allowed staff pass. He fully participated in unit programming. He was noted to be helpful to peers and share his experience and wisdom with them. Over the course of the hospitalization as the milieu was more active and chaotic, he reported frustration and desired to return home to the [facility]. Today, the patient reports readiness for discharge and is looking forward to returning to [facility]. The patient had much family presence while here on the unit including a man named Franko, who has been like a family member to the family. Frank[facility] Laboratory data received while patient was in the emergency room on 05/06/17 was a CBC, CMP. While he was admitted, we added on a hemoglobin A1c and lipid panel due to antipsychotic treatment. The patient's toxicology was negative for all substances tested. The patient will be returning to followup care at [facility] with psychiatric practitioner, Maria Del Carmen Slaughter. Next appointment with her is , 05/20/17, at 2 p.m. His nurse therapist is Melvin Richardson; he will see him on 05/25/17 at 10:15 a.m. The patient will follow up with PCP, Dr. Rmoero, as needed. MAHIN TIERNEY, BREAST WORKER [id number]/[facility] #: [id number] BOB
== END 2017-05-17 12:18 | disposition home or self-care (01) | DRG 881 ==
LOC: ED 14:57 → BSU 23:00
PROVIDERS: ADMIT Psychiatry & Neurology Psychiatry; ATTEND Psychiatry & Neurology Psychiatry
DX: F43.21 Adjustment disorder with depressed mood (principal); R45.851 Suicidal ideations; F25.0 Schizoaffective disorder, bipolar type; F42.9 Obsessive-compulsive disorder, unspecified; F10.21 Alcohol dependence, in remission; I10 Essential (primary) hypertension; E03.9 Hypothyroidism, unspecified; N40.0 Benign prostatic hyperplasia without lower urinary tract symptoms; Z88.8 Allergy status to other drugs, medicaments and biological substances
CPT/HCPCS: 36415; 70450; 80053; 80061; 80307; 80320; 80329; 81003; 83036; 84443; 85025; 90853; 99222; 99231; 99232; 99238; A9270-GY; G0480

== ENCOUNTER 2017-11-26 16:01 | Inpatient (IN) | payer MEDICARE, MEDICAID ==
[2017-11-26] MEDS ORDERED: NS 0.9% 1000 ML* 1,000 ML IV ONE (16:18)
[2017-11-26] MEDS ORDERED: Meclizine TAB* 12.5 MG PO ONE (16:18)
[2017-11-26] MEDS ORDERED: diPHENhydraMINE IV* 50 MG/ML 1 ml VIAL (BENADRYL) IV ONE (16:18)
[2017-11-26] MEDS ORDERED: Metoprolol Tartrate IV* 1 MG/ML 5 ML VIAL IV ONE (16:39)
[2017-11-26 16:42] LABS: ABS Basophils 0 10^3/ul (0-0.2); ABS Eosinophils 0.1 10^3/ul (0-0.6); ABS Lymphocytes 1.5 10^3/ul (1.0-4.8); ABS Monocytes 1.2 10^3/ul (0-0.8); ABS Neutrophils 8.2 10^3/ul (1.5-7.7); ABS Nucleated RBC 0 10^3/ul; Eosinophil % 0.9 % (0-6); Hematocrit 40 % (42-52); Hemoglobin 13.9 g/dl (14.0-18.0); Lymphocyte % 14.1 % (25-47); Mean Corpuscular HGB Conc 35 g/dl (31-36); Mean Corpuscular Hemoglobin 31 pg (27-31); Mean Corpuscular Volume 88 fL (80-94); Mean Platelet Volume 8.3 um3 (7.4-10.4); Nucleated Red Blood Cells % 0; Platelet Count 197 10^3/ul (150-450); Red Blood Count 4.56 10^6/ul (4.00-5.40); Red Cell Distribution Width 14 % (10.5-15)
[2017-11-26 16:58] LABS: EGFR Non-African American 33.3 (>60)
[2017-11-26] MEDS ORDERED: Magnesium Sulfate 2 GM IV* 2 GM/50 ML BAG IVPB ONE (17:53)
--- NOTE | 2017-11-26 18:35 | ED ---
Shady Canales Stephanie, scribed for Fabricio Omer MD on 11/26/17 at 1628 . Dizziness - HPI Summary HPI Summary: The pt is a 67 y/o M presenting to the ED with c/o dizziness that began on . The pt states he started Prilosec today for recent issues with swallowing. He states when he changed position he became off balance. Denies nausea, speech difficulty, vomiting, SOB and CP. The pt states he has had intermittent diarrhea for the past few days. He denies head trauma. - History Of Current Complaint Chief Complaint: EDDizziness Stated Complaint: DIZZY Time Seen by Provider: 11/26/17 16:17 Hx Obtained From: Patient Onset/Duration: Resolved Timing: Intermittent Episode Lasting Character: Room Spinning Aggravating Factor(s): Position Change Alleviating Factor(s): Nothing Associated Signs And Symptoms: Positive: Diarrhea. Negative: Nausea, Vomiting, Slurred Speech - Allergies/Home Medications Allergies/Adverse Reactions: Allergies Allergy/AdvReac Type Severity Reaction Status Date / Time MS Chlordiazepoxide Allergy Unknown Unknown Verified 09/29/14 10:02 [From Librium] Reaction Details MS Bowdle [Bowdle] Allergy Unknown Unknown Verified 09/29/14 10:02 Reaction Details MS Oxcarbazepine Allergy Unknown Unknown Verified 09/29/14 10:02 [From Trileptal] Reaction Details Home Medications: Home Medications CloZAPine TAB* 300 mg PO BEDTIME 11/26/17 [History Confirmed 11/26/17] Famotidine TAB* [Pepcid 20 MG TAB*] 20 mg PO QAM 11/26/17 [History Confirmed ] Folic Acid TAB* [Folvite TAB*] 1 mg PO DAILY 11/26/17 [History Confirmed ] Gabapentin CAP(*) [Neurontin 100 mg CAP(*)] 100 mg PO TID 11/26/17 [History Confirmed 11/26/17] L. Rhamnosus/C/Zinc Cit/Yeast [Culturelle Advanced Immun] 1 cap PO DAILY [History Confirmed 11/26/17] Levothyroxine TAB* [Synthroid TAB*] 125 mcg PO QAM 11/26/17 [History Confirmed 11/26/17] Lisinopril TAB* [Prinivil TAB*] 20 mg PO DAILY 11/26/17 [History Confirmed 11/26] Metoprolol Succinate XL TAB* [Toprol XL TAB*] 50 mg PO DAILY 11/26/17 [History Confirmed 11/26/17] Multivitamins/Minerals TAB* [Theragran/minerals TAB*] 1 tab PO DAILY 11/26/17 [ History Confirmed 11/26/17] Tamsulosin CAP* [Flomax CAP*] 0.4 mg PO DAILY 11/26/17 [History Confirmed ] Thiamine TAB* [Vitamin B-1 TAB*] 100 mg PO DAILY 11/26/17 [History Confirmed ] PMH/Surg Hx/FS Hx/Imm Hx Endocrine/Hematology History: Reports: Hx Thyroid Disease Cardiovascular History: Reports: Hx Hypertension GI History: Comment Only: Other GI Disorders - History of GERD History: Reports: Other Problems/Disorders - Chronic Kidney DX Sensory History: Reports: Hx Contacts or Glasses - did not present with eyeglasses at admission Denies: Hx Hearing Aid Opthamlomology History: Reports: Hx Contacts or Glasses - did not present with eyeglasses at admission Psychiatric History: Reports: Hx Schizophrenia Denies: Hx Eating Disorder, Hx of Violent Episodes Against Others - Surgical History Surgery Procedure, Year, and Place: surgery for diverticulitis 'many yrs ago' Infectious Disease History: No Infectious Disease History: Denies: Traveled Outside the [place] in Last 30 Days - Family History Known Family History: Positive: Other - paternal grandmother: schizophrenia Negative: Renal Disease - Social History Occupation: Retired Lives: Alone Alcohol Use: Daily Hx Substance Use: No Substance Use Type: Reports: None Hx Tobacco Use: Yes Smoking Status (MU): Former Smoker Type: Cigarettes Amount Used/How Often: Patient has not smoked in the last 30 days Length of Time of Smoking/Using Tobacco: Patient has not smoked in the last 30 days Review of Systems Negative: Fever Negative: Chest Pain Negative: Shortness Of Breath Negative: Vomiting, Nausea Neurological: Other - dizziness Negative: Slurred Speech All Other Systems Reviewed And Are Negative: Yes Physical Exam - Summary Physical Exam Summary: Appearance: Well appearing, no pain distress Skin: warm, dry, slight pallor, no rash Head/face: normal Eyes: EOMI, KAT ENT: normal Neck: supple, non-tender Respiratory: CTA, breath sounds present Cardiovascular: heart tachycardic but regular, pulses symmetrical Abdomen: non-tender, soft Bowel Sounds: present Musculoskeletal: normal, strength/ROM intact, no LE edema, Kyphosis of the spine Neuro: normal, sensory motor intact, A&Ox3, Negative Halpike test Triage Information Reviewed: Yes Vital Signs On Initial Exam: Initial Vitals Temp Pulse Resp BP Pulse Ox 98.2 F 107 15 110/63 95 11/26/17 16:05 11/26/17 16:05 11/26/17 16:05 11/26/17 16:05 11/26/17 16:05 Vital Signs Reviewed: Yes Diagnostics - Vital Signs Vital Signs Temp Pulse Resp BP Pulse Ox 11/26/17 16:05 98.2 F 107 15 110/63 95 - Laboratory Lab Results: Lab Results 11/26/17 11/26/17 11/26/17 Range/Units 16:30 16:33 16:33 WBC 11.0 H (3.5-10.8) 10^3/ul RBC 4.56 (4.00-5.40) 10^6/ul Hgb 13.9 L (14.0-18.0) g/dl Hct 40 L (42-52) % MCV 88 (80-94) fL MCH 31 (27-31) pg MCHC 35 (31-36) g/dl RDW 14 (10.5-15) % Plt Count 197 (150-450) 10^3/ul MPV 8.3 (7.4-10.4) um3 Neut % (Auto) 74.2 (38-83) % Lymph % (Auto) 14.1 L (25-47) % Gregg % (Auto) 10.5 H (0-7) % Eos % (Auto) 0.9 (0-6) % Baso % (Auto) 0.3 (0-2) % Absolute Neuts (auto) 8.2 H (1.5-7.7) 10^3/ul Absolute Lymphs (auto) 1.5 (1.0-4.8) 10^3/ul Absolute Monos (auto) 1.2 H (0-0.8) 10^3/ul Absolute Eos (auto) 0.1 (0-0.6) 10^3/ul Absolute Basos (auto) 0 (0-0.2) 10^3/ul Absolute Nucleated RBC 0 10^3/ul Nucleated RBC % 0 INR (Anticoag Therapy) 1.00 (0.77-1.02) Sodium 127 L (135-145) mmol/L Potassium 4.1 (3.5-5.0) mmol/L Chloride 98 L (101-111) mmol/L Carbon Dioxide 19 L (22-32) mmol/L Anion Gap 10 (2-11) mmol/L BUN 25 H (6-24) mg/dL Creatinine 2.00 H (0.67-1.17) mg/dL Est GFR ( Amer) 42.8 (>60) Est GFR (Non-Af Amer) 33.3 (>60) BUN/Creatinine Ratio 12.5 (8-20) Glucose 121 H (70-100) mg/dL Calcium 8.8 (8.6-10.3) mg/dL Magnesium 1.8 L (1.9-2.7) mg/dL Total Bilirubin 1.00 (0.2-1.0) mg/dL AST 14 (13-39) U/L ALT 13 (7-52) U/L Alkaline Phosphatase 72 (34-104) U/L Troponin I 0.00 (<0.04) ng/mL Total Protein 6.3 L (6.4-8.9) g/dL Albumin 3.8 (3.2-5.2) g/dL Globulin 2.5 (2-4) g/dL Albumin/Globulin Ratio 1.5 (1-3) TSH 3.70 (0.34-5.60) mcIU/mL Result Diagrams: 11/26/17 16:33 11/26/17 16:33 Lab Statement: Any lab studies that have been ordered have been reviewed, and results considered in the medical decision making process. - EKG 16:27 Cardiac Rate: Tachycardia EKG Rhythm: Atrial Fibrillation - [address] Segment: Non-Specific Ectopy: PVCs EKG Interpretation: nml axis, nml intervals Re-Evaluation - Re-Evaluation First Eval Re-Evaluation Time: 17:13 Change: Improved - The pt's HR has decreased to 90 BPM. He is feeling a bit better however, he desires admission. Dizzy Course/Dx - Course Course Of Treatment: Patient with new onset atrial fibrillation with tachycardia. He was rate controlled here with fluids and beta skyler. His rate is down to the 90s. He is not on anticoagulants. He had a history of taking metoprolol but this was for PVCs. Discussed the case with the hospitalist to admit. - Diagnoses Differential Diagnosis/HQI/PQRI: Other - Vertigo, vagal reaction, tachybradycardia syndrome, arrhythmia Provider Diagnoses: Rapid atrial fibrillation, Dizziness, Dehydration - Provider Notifications Discussed Care Of Patient With: Vega Chris Time Discussed With Above Provider: 18:19 Instructed by Provider To: Admit As Inpatient - Critical Care Time Critical Care Time: 30-74 min - Critical care time is exclusive of separately billable procedures Discharge - Sign-Out/Discharge Documenting (check all that apply): Discharge/Admit/Transfer - Admit - Discharge Plan Condition: Stable Disposition: ADMITTED TO [facility] Referrals: Raulito Romero MD [Primary Care Provider] - - Billing Disposition and Condition Condition: STABLE Disposition: Admitted to [facility] The documentation as recorded by the Shady hewitt Stephanie accurately reflects the service I personally performed and the decisions made by Negra armas Kirk, MD.
[2017-11-26] MEDS ORDERED: Acetaminophen TAB* 325 MG PO PRN (19:13)
[2017-11-26] MEDS ORDERED: Al Hydrox/Mg Hydrox/Simet LIQ* 30 ML UDC PO PRN (19:13)
--- NOTE | 2017-11-26 20:10 | RAD ---
INDICATION: Dizziness. COMPARISON: Comparison is made with a prior CT of the brain from May 06, 2017. TECHNIQUE: Contiguous axial sections of the brain were obtained from the skull base to the vertex without contrast. FINDINGS: The ventricles, cisterns and sulci are within normal limits. No significant focal abnormality or mass effect is seen. There is no evidence for hemorrhage. No significant focal osseous abnormality is seen. The visualized portion of the paranasal sinuses and mastoid air cells appear clear. IMPRESSION: NO EVIDENCE FOR ACUTE INTRACRANIAL ABNORMALITY.
--- NOTE | 2017-11-26 20:15 | RAD ---
INDICATION: Diarrhea and vomiting. COMPARISON: Comparison is made with a prior CT of the abdomen and pelvis from June 23, 2011. TECHNIQUE: Supine and upright views of the abdomen were obtained. FINDINGS: The small bowel appears nondistended. There is moderate diffuse distention of the colon to the level of the distal sigmoid colon most consistent with a partial obstruction. No free intraperitoneal air is seen. IMPRESSION: FINDINGS MOST CONSISTENT WITH A OBSTRUCTION OF THE SIGMOID COLON. RECOMMEND A CT OF THE ABDOMEN AND PELVIS WITH CONTRAST FOR FURTHER EVALUATION.
[2017-11-26] MEDS: CloZAPine TAB* 100 MG TAB PO SCH (21:13)
[2017-11-26] MEDS: Gabapentin CAP(*) 100 MG PO SCH (21:13)
[2017-11-26] MEDS: Heparin VIAL(*) 5000 UNITS/ML VIAL (FIVE THOUSAND) SUBCUT SCH (21:14)
[2017-11-26] MEDS ORDERED: Diatrizoate Meg/Sod(CONTRAST) 30 ML ORAL.SOLN PO ONE (23:00)
--- NOTE | 2017-11-26 23:42 | PN ---
Hospitalist Progress Note Date of Service: 11/26/17 ABd x- ray show possible bowel obstruction. I will order CT abd with contrast, ANTONIO , NPO.
--- NOTE | 2017-11-27 01:55 | HP ---
CC: Dr. Romero * HISTORY AND PHYSICAL: DATE OF ADMISSION: 11/26/17 PROVIDER: Ann Marie Robles NP PRIMARY CARE PROVIDER: Dr. Romero ATTENDING PHYSICIAN WHILE IN THE HOSPITAL: Vega Chris MD * ( dictated by Ann Marie Robles NP). CHIEF COMPLAINT: 1. Dizziness. 2. Vomiting. HISTORY OF PRESENT ILLNESS: Mr. Neville is a 67-year-old male with a past medical history of hypertension, hypothyroid, BPH, schizoaffective disorder, schizophrenia, GERD, history of diverticulitis, and history of ventricular tachycardia, who presented to the emergency room with dizziness stating that he was having balance issues. The patient reports that over the past 3 days, he has had difficulty with his balance, worse than normal. He feels like his balance is off. He went to get up and fell backwards on to his bed. He has done that twice over the past 3 days. He also reports that his balance issue has become worse when it is close to him receiving his next testosterone booster shot. The patient reports that he is in the third week since he has had his last testosterone booster and he gets them every 4 weeks. The patient also reports that he had a 2-day history of vomiting and decreased appetite. The patient also reports that approximately 1 week ago the floor he resides on, the whole floor had diarrhea and with several days with the diarrhea, he did state that that had resolved. He denied any blood or black or tarry stool during those diarrhea. He denied any blood or coffee ground emesis with his vomiting for the past 2 days. He denies any gross hematuria or dysuria. Denies any urinary frequency or sensory loss. Denies any visual complaints. Denies any difficulty swallowing. Denies any arthralgias or myalgias. Denies any rashes or lesions. Denies any anxiety or depression. While in the emergency room, the patient had routine lab work drawn. He was placed on the monitor and vital signs were obtained. He was found to be in atrial fibrillation, which is new for him. He does have a history of ventricular tachycardia, but no history of atrial fibrillation. The patient's magnesium level was 1.8. He was given 2 g of magnesium while in the emergency room. He was also given meclizine, which he reports has helped his balance issue. The patient reports that his abdomen is more bloated than normal, but denies any abdominal pain. Given his dizziness and new-onset atrial fibrillation, we were asked to see and evaluate him for admission. PAST MEDICAL HISTORY: Significant for: 1. Hypertension. 2. Hypothyroid. 3. BPH. 4. Schizoaffective disorder. 5. History of alcohol abuse, last in 2014. 6. Schizophrenia. 7. GERD. 8. History of diverticulitis. 9. History of ventricular tachycardia and PVCs. PAST SURGICAL HISTORY: He reports he had surgery repair for diverticulitis. HOME MEDICATIONS: Include: 1. Thiamine 100 mg p.o. daily. 2. Multivitamin 1 p.o. daily. 3. Culturelle Advanced 1 p.o. daily. 4. Tamsulosin 0.4 mg p.o. daily. 5. Metoprolol 50 mg p.o. daily. 6. Lisinopril 20 mg p.o. daily. 7. Levothyroxine 125 mcg p.o. daily. 8. Gabapentin 100 mg p.o. b.i.d. 9. Folic acid 1 mg p.o. daily. 10. Prilosec 40 mg p.o. daily. 11. Clozapine 300 mg p.o. at bedtime. FAMILY HISTORY: Mother with a history of AFib at 87, history of myocardial infarctions. Sister with a history of diabetes. No reported cancers within the family. SOCIAL HISTORY: The patient quit smoking approximately 20 years ago. He denies any alcohol use since 2014. Denies any illicit drug use. Surrogate decision maker in the event he is unable to make his own decisions is Terry Sanchez, his phone number is [phone]. The patient is a full code. REVIEW OF SYSTEMS: There was no documented fever. There has been no significant weight change. He denies any double vision. Denies any ear drainage. Denies any rhinorrhea or sore throat. Denied any chest pain. He denies any orthopnea or nocturnal dyspnea. Denies any shortness of breath, cough or congestion. He denies any abdominal pain. He does report vomiting yesterday and the day before, no vomiting today. He does report diarrhea intermittently. He denies any black or tarry stools. He denies any coffee ground emesis or danielle bright red blood in the emesis. Denies any hematuria or dysuria. Denies any focal weakness or sensory loss. Denies any visual complaints. Denies any dysphagia. Denies any arthralgias or myalgias. He denies any rashes or lesions. Denies any problems with anxiety or depression. PHYSICAL EXAMINATION GENERAL: At this time, Mr. Neville is a 67-year-old male. He appears well, sitting on the stretcher in the emergency room. He does not appear to be in any acute distress. VITAL SIGNS: Temperature was 98.2, heart rate was 107, respirations were 15, O2 saturation was 95%, blood pressure was 110/63. HEENT: Head is atraumatic, normocephalic. Eyes: EOMs are intact. Sclerae anicteric and not pale. Oral mucosa appeared to be moist. There is no oropharyngeal erythema. NECK: Supple. LUNGS: Clear to auscultation bilaterally. No wheezes, rales, or rhonchi. CARDIAC: S1, S2. Irregular rate and rhythm. There is murmur. No rubs or gallops. ABDOMEN: Round and distended. Nontender. Bowel sounds are present. Hypoactive in the lower quadrant. EXTREMITIES: Pulses are +2 throughout. He is able to move all 4 extremities with 5/5 strength. NEUROLOGIC: He is awake and oriented x4. Hand underwriting clerk are equal. Tongue is midline. Speech is clear. There are no focal deficits. [id number] is intact. There is no nystagmus. [id number] is without deficits. There is no arm drift. Pupils are equal and reactive to light. SKIN: Intact. DIAGNOSTIC STUDIES AND LABORATORY DATA: WBCs 11.0, RBCs 4.56, hemoglobin 13.9 , hematocrit was 40, platelet count was 197. INR was 1.0. Sodium 127, potassium 4.1, chloride was 98, carbon dioxide was 19. BUN was 25, creatinine was 2.0, glucose was 121, magnesium was 1.8, troponin was 0.00. TSH was 3.70. Electrocardiogram showed AFib at the rate of 101. ASSESSMENT AND PLAN: Mr. Neville is a 67-year-old male who presented to the emergency room today with complaints of increased dizziness and balance issues. We were asked to evaluate him due to new-onset atrial fibrillation and dizziness. He will be admitted inpatient for: 1. New-onset atrial fibrillation. We will continue to trend his troponins. I will get an echocardiogram. His assistant teacher primary is Dr. Sawant. At this time, I suspect his atrial fibrillation could be related to dehydration and low magnesium. We will continue with rehydration. In the event he stays in atrial fibrillation, we may consider evaluation by Cardiology. His CHADS-VASC score is 2 giving him 2.2% per year stroke risk and 2.9% risk of stroke/transient ischemic attack/systemic embolism. A score of 2 or greater is monitored as high risk and should otherwise be an anticoagulation candidate. We will observe him overnight as the patient converts back to sinus rhythm. We will evaluate the need to start him on full dose anticoagulation. 2. Hypernatremia. I suspect this is related to hypovolemia. The patient will be rehydrated with normal saline at 125 cc per hour. He did receive a liter of saline in the emergency room. The patient has had a 2-day history prior to arrival of vomiting as well as intermittent diarrhea. 3. Vertigo. I suspect, again, this is related to dehydration and hypovolemia, which has increased his symptoms and balance disturbances. I will get a CT of his head to assess for any abnormalities. He does report that the meclizine is improving his symptoms. We will continue to give him meclizine during his hospitalization and continue to monitor his symptoms. His neuro assessment is intact. There are no neuro deficits noted. 4. Gastroesophageal reflux disease. We will continue him on Prilosec 40 mg p.o. daily. 5. Hypertension. He will continue his metoprolol 50 mg p.o. daily. 6. Schizophrenia. He will continue on his home medication treatment as previously prescribed. 7. Hypothyroid. He will continue on his Synthroid at 125 mcg p.o. daily. 8. FEN. He will be placed on a low sodium diet. 9. Code status. He is a full code. 10. DVT prophylaxis. He will be placed on heparin subcu 5000 units q.8 hours. 11. Disposition: He will be placed on observation. TIME SPENT: Time spent on this admission was approximately 60 minutes, greater than half of that time was spent with the patient [id number] obtaining my history and physical, the other half of the time was spent going over my plan of care and implementing my plan of care. I have discussed this with my attending, Dr. Vega Chris, and he is in agreement with my plan. ANN MARIE ROBLES, FERMENTER HELPER [id number]/CPS #: [id number] MTDD
[2017-11-27] MEDS: NS 0.9% 1000 ML* 1,000 ML IV SCH ×3 (02:32→23:46)
[2017-11-27] MEDS: Heparin VIAL(*) 5000 UNITS/ML VIAL (FIVE THOUSAND) SUBCUT SCH ×3 (05:18→20:19)
[2017-11-27] MEDS: Levothyroxine TAB* 125 MCG TAB PO SCH (05:20)
[2017-11-27 05:57] LABS: ABS Basophils 0 10^3/ul (0-0.2); ABS Eosinophils 0.2 10^3/ul (0-0.6); ABS Lymphocytes 1.4 10^3/ul (1.0-4.8); ABS Monocytes 0.9 10^3/ul (0-0.8); ABS Neutrophils 7.1 10^3/ul (1.5-7.7); ABS Nucleated RBC 0 10^3/ul; Eosinophil % 1.7 % (0-6); Hematocrit 40 % (42-52); Hemoglobin 13.4 g/dl (14.0-18.0); Lymphocyte % 14.3 % (25-47); Mean Corpuscular HGB Conc 34 g/dl (31-36); Mean Corpuscular Hemoglobin 30 pg (27-31); Mean Corpuscular Volume 89 fL (80-94); Mean Platelet Volume 8.3 um3 (7.4-10.4); Nucleated Red Blood Cells % 0; Platelet Count 192 10^3/ul (150-450); Red Blood Count 4.52 10^6/ul (4.00-5.40); Red Cell Distribution Width 14 % (10.5-15); White Blood Count 9.6 10^3/ul (3.5-10.8)
[2017-11-27 06:17] LABS: EGFR Non-African American 32.5 (>60)
--- NOTE | 2017-11-27 07:37 | RAD ---
CLINICAL HISTORY: concern for obstruction , dizziness, dehydration COMPARISON: There are April 02, 2012 TECHNIQUE: Multiple contiguous axial CT scans were obtained of the abdomen and pelvis, without intravenous contrast enhancement. Coronal and sagittal multiplanar reformations are submitted for review. Oral contrast was administered. FINDINGS: The study is limited by the lack of intravenous contrast. This limits evaluation of the solid organs and vasculature. LUNG BASES: There are trace bilateral pleural effusions. LIVER: The liver is normal in shape, size, contour, and attenuation. BILE DUCTS: There is no intrahepatic or extrahepatic biliary dilatation. GALLBLADDER: The gallbladder is normal, without pericholecystic inflammatory change. PANCREAS: The pancreas is normal, without mass or ductal dilatation. SPLEEN: Normal in size and appearance. UPPER GI TRACT: Evaluation of the gastrointestinal tract is limited by incomplete gastric distention. There is a lipoma of the third stage of the duodenum. This is an incidental finding. SMALL BOWEL AND MESENTERY: The small bowel is normal in contour, course, and caliber. There is no obstruction or dilatation. COLON: The colon is normal in contour, course, caliber. There is no pericolonic inflammatory change. Oral contrast reaches the colon. There is a tubular, vermiform, hollow viscus that is blind ending, and originates from the cecum, consistent with a normal appendix. There is no periappendiceal inflammatory change. ADRENALS: Normal bilaterally. KIDNEYS: The kidneys are normal in shape, size, contour, and axis. There is no hydronephrosis or nephrolithiasis. BLADDER: There is mild trabeculation of the bladder wall. PELVIC ORGANS: The prostate gland is normal. The seminal vesicles are symmetric. AORTA: There is calcific atherosclerotic disease of the abdominal aorta and its branches, without aneurysmal dilatation IVC: Unremarkable LYMPH NODES: There is no lymphadenopathy by size criteria. ABDOMINAL WALL: There is no evidence for abdominal wall hernia. BONES AND SOFT TISSUES: There are mild diffuse degenerative changes. OTHER: None IMPRESSION: 1. NO OBSTRUCTION. 2. MILD TRABECULATION OF THE BLADDER WALL. 3. ATHEROSCLEROSIS. 4. TRACE BILATERAL PLEURAL EFFUSIONS.
--- NOTE | 2017-11-27 07:42 | RAD ---
HISTORY: check NG placement COMPARISONS: None relevant VIEWS: 1: frontal portable view of the chest and lower abdomen at 2:30 AM. The study is limited by positioning. FINDINGS: LINES AND TUBES: A gastric tube is noted, with the tip in the left upper quadrant in a prepyloric position.. CARDIOMEDIASTINAL SILHOUETTE: The cardiomediastinal silhouette is normal for portable technique. PLEURA: The left costophrenic angle is cut off. The right costophrenic angle sharp. LUNG PARENCHYMA: The lung apices are cut off. The visualized lungs are clear. ABDOMEN: The upper abdomen is clear. There is no subphrenic gas. BONES AND SOFT TISSUES: No bone or soft tissue abnormalities are noted. IMPRESSION: LIMITED STUDY. LINES AND TUBES ABOVE. NO ACTIVE CARDIOPULMONARY DISEASE.
[2017-11-27] MEDS: Thiamine TAB* 100 MG TAB PO SCH (10:11)
[2017-11-27] MEDS: Gabapentin CAP(*) 100 MG PO SCH ×3 (10:11→20:19)
[2017-11-27] MEDS: Multivitamins/Minerals TAB PO SCH (10:11)
[2017-11-27] MEDS: Metoprolol Succinate XL TAB* 50 MG PO SCH (10:11)
[2017-11-27] MEDS: Folic Acid TAB* 1 MG PO SCH (10:11)
[2017-11-27] MEDS: Tamsulosin CAP* 0.4 MG PO SCH (10:12)
[2017-11-27] MEDS: Omeprazole CAP* 20 MG PO SCH (11:22)
--- NOTE | 2017-11-27 12:27 | PN ---
Subjective Date of Service: 11/27/17 Interval History: HOSPITALIST PROGRESS NOTE Patient seen and examined at bedside. Care reviewed and d/w Tennille Scanlon RN. He's in good spirits today. NGT accidentally removed when he went to the bathroom. Denies abdominal pain, N/V. Had a soft BM today. Hungry, wants to try food. Family History: Unchanged from Admission Social History: Unchanged from Admission Past Medical History: Unchanged from Admission Objective Active Medications: Acetaminophen (Tylenol Tab*) 650 mg PO Q4H PRN PRN Reason: FEVER/PAIN Al Hydrox/Mg Hydrox/Simethicone (Maalox Plus*) 30 ml PO Q6H PRN PRN Reason: INDIGESTION Clozapine (Clozapine Tab*) 300 mg PO BEDTIME [facility] Last Admin: 11/26/17 21:13 Dose: 300 mg Folic Acid (Folvite Tab*) 1 mg PO DAILY [facility] Last Admin: 11/27/17 10:11 Dose: 1 mg Gabapentin (Neurontin Cap(*)) 100 mg PO TID [facility] Last Admin: 11/27/17 10:11 Dose: 100 mg Heparin Sodium (Porcine) (Heparin Vial(*)) 5,000 units SUBCUT Q8HR [facility] Last Admin: 11/27/17 05:18 Dose: 5,000 units Sodium Chloride (Ns 0.9% 1000 Ml*) 1,000 mls @ 75 mls/hr IV PER RATE [facility] Levothyroxine Sodium (Synthroid Tab*) 125 mcg PO 0600 [facility] Last Admin: 11/27/17 05:20 Dose: 125 mcg Metoprolol Succinate (Toprol Xl Tab*) 50 mg PO DAILY [facility] Last Admin: 11/27/17 10:11 Dose: 50 mg Multivitamins/Minerals (Theragran/Minerals Tab*) 1 tab PO DAILY [facility] Last Admin: 11/27/17 10:11 Dose: 1 tab Omeprazole (Prilosec Cap*) 20 mg PO DAILY@0600 [facility] Last Admin: 11/27/17 11:22 Dose: 20 mg Tamsulosin HCl (Flomax Cap*) 0.4 mg PO DAILY [facility] Last Admin: 11/27/17 10:12 Dose: 0.4 mg Thiamine HCl (Vitamin B-1 Tab*) 100 mg PO DAILY [facility] Last Admin: 11/27/17 10:11 Dose: 100 mg Vital Signs - 8 hr 11/27/17 11/27/17 11/27/17 07:12 07:38 10:11 Temperature 98.0 F Pulse Rate 87 Respiratory 20 16 16 Rate Blood Pressure 122/62 (mmHg) O2 Sat by Pulse 99 Oximetry Oxygen Devices in Use Now: None Appearance: Pleasant elderly gentleman sitting up in bed in NAD. Eyes: No Scleral Icterus Ears/Nose/Mouth/Throat: Mucous Membranes Moist Neck: Trachea Midline Respiratory: Symmetrical Chest Expansion and Respiratory Effort, Clear to Auscultation Cardiovascular: RRR - Normal S1 and S2 Abdominal: NL Sounds; No Tenderness; No Distention - obese Neurological: Alert and Oriented x 3, NL Muscle Strength and Tone Result Diagrams: 11/27/17 05:40 11/27/17 05:40 Assess/Plan/Problems-Billing Assessment: Mr Neville is a67yo M with PMH of HTN, schizoaffective disorder, hypothyroidism , hypogonadism, PVCs, paroxysmal Vtach, who presented to ED with c/o dizziness. - Patient Problems (1) Dizziness Comment: - Much improved today. - Suspect it was likely secondary to dehydration due to diarrheal illness. - Continue IVF. (2) Bowel obstruction Comment: - AxR showed findings suggestive of sigmoid colon obstruction, but CT showed none. - D/c NGT, start clear liquids, and advance as tolerated. (3) Gastroenteritis Comment: - Patient states many of the other residents at [facility] had a diarrheal illness and he thinks he got it too. - He has chronic diarrhea he manages with Imodium, but this episode was worse. - Continue to monitor. (4) Paroxysmal A-fib Comment: - Suspect brought on by dehydration and low magnesium. Converted to NSR spontaneously with hydration, lyte replacement, and his usual Metoprolol dose. - [id number] is 2 - patient has concerns about anticoagulation. At this point he 's back in NSR, with his CKD may be a candidate for Eliquis. He has an appointment scheduled with Dr. Sawant on 11/30 and would like to talk to him about it. - Continue to monitor on Telemetry. (5) Hyponatremia Comment: - Likely secondary to dehydration, improving with IV hydration. (6) Hypogonadism Comment: - Patient states he takes Testosterone injections and usually feels great for the first 2 weeks. By the 3rd week he starts to feel weak, fatigued, his diarrhea gets worse, and he can barely wait for the next shot. (7) Hypothyroidism Comment: - TSH 3.7. - Continue Levothyroxine. (8) Paroxysmal ventricular tachycardia Comment: - Follows with Dr. Sawant and had EP study with Dr. Fuentes. - Continue Metoprolol. (9) Schizoaffective disorder Comment: - Continue Clozapine. (10) DVT prophylaxis Comment: - SQ heparin. (11) Full code status Status and Disposition: Inpatient.
[2017-11-27] MEDS: CloZAPine TAB* 100 MG TAB PO SCH (20:19)
[2017-11-28 05:44] LABS: EGFR Non-African American 34.5 (>60)
[2017-11-28] MEDS: Omeprazole CAP* 20 MG PO SCH (06:05)
[2017-11-28] MEDS: Levothyroxine TAB* 125 MCG TAB PO SCH (06:05)
[2017-11-28] MEDS: Heparin VIAL(*) 5000 UNITS/ML VIAL (FIVE THOUSAND) SUBCUT SCH ×3 (06:05→20:14)
[2017-11-28] MEDS: Metoprolol Succinate XL TAB* 50 MG PO SCH (07:46)
[2017-11-28] MEDS: Multivitamins/Minerals TAB PO SCH (07:47)
[2017-11-28] MEDS: Folic Acid TAB* 1 MG PO SCH (07:47)
[2017-11-28] MEDS: Tamsulosin CAP* 0.4 MG PO SCH (07:47)
[2017-11-28] MEDS: Gabapentin CAP(*) 100 MG PO SCH ×3 (07:47→20:12)
[2017-11-28] MEDS: Thiamine TAB* 100 MG TAB PO SCH (07:47)
[2017-11-28] MEDS: Lisinopril TAB* 10 MG PO SCH (08:24)
[2017-11-28] MEDS ORDERED: Loperamide CAP* 2 MG PO PRN (09:33)
[2017-11-28] MEDS: NS 0.9% 1000 ML* 1,000 ML IV SCH (13:19)
--- NOTE | 2017-11-28 14:47 | PN ---
Subjective Date of Service: 11/28/17 Interval History: HOSPITALIST PROGRESS NOTE Patient seen and examined at bedside. Care reviewed and d/w Laurel Burnham RN. He feels a little better today. Dizziness is less intense, appetite is good, no abdominal pain, N/V. Family History: Unchanged from Admission Social History: Unchanged from Admission Past Medical History: Unchanged from Admission Objective Active Medications: Acetaminophen (Tylenol Tab*) 650 mg PO Q4H PRN PRN Reason: FEVER/PAIN Al Hydrox/Mg Hydrox/Simethicone (Maalox Plus*) 30 ml PO Q6H PRN PRN Reason: INDIGESTION Clozapine (Clozapine Tab*) 300 mg PO BEDTIME [facility] [place] Last Admin: 11/27/17 20:19 Dose: 300 mg Folic Acid (Folvite Tab*) 1 mg PO DAILY [facility] Last Admin: 11/28/17 07:47 Dose: 1 mg Gabapentin (Neurontin Cap(*)) 100 mg PO TID [facility] Last Admin: 11/28/17 13:18 Dose: 100 mg Heparin Sodium (Porcine) (Heparin Vial(*)) 5,000 units SUBCUT Q8HR [facility] Last Admin: 11/28/17 13:18 Dose: 5,000 units Sodium Chloride (Ns 0.9% 1000 Ml*) 1,000 mls @ 75 mls/hr IV PER RATE [facility] Stop: 11/28/17 16:00 Last Admin: 11/28/17 13:19 Dose: 75 mls/hr Levothyroxine Sodium (Synthroid Tab*) 125 mcg PO 0600 [facility] Last Admin: 11/28/17 06:05 Dose: 125 mcg Lisinopril (Prinivil Tab*) 20 mg PO DAILY [facility] Last Admin: 11/28/17 08:24 Dose: 20 mg Loperamide HCl (Imodium Cap*) 2 mg PO .SEE DIRECTIONS PRN PRN Reason: DIARRHEA Metoprolol Succinate (Toprol Xl Tab*) 50 mg PO DAILY [facility] Last Admin: 11/28/17 07:46 Dose: 50 mg Multivitamins/Minerals (Theragran/Minerals Tab*) 1 tab PO DAILY [facility] Last Admin: 11/28/17 07:47 Dose: 1 tab Omeprazole (Prilosec Cap*) 20 mg PO DAILY@0600 [facility] Last Admin: 11/28/17 06:05 Dose: 20 mg Tamsulosin HCl (Flomax Cap*) 0.4 mg PO DAILY [facility] Last Admin: 11/28/17 07:47 Dose: 0.4 mg Thiamine HCl (Vitamin B-1 Tab*) 100 mg PO DAILY [facility] Last Admin: 11/28/17 07:47 Dose: 100 mg Vital Signs - 8 hr 11/28/17 11/28/17 11/28/17 06:55 07:14 07:47 Temperature 97.5 F Pulse Rate 95 Respiratory 20 28 20 Rate Blood Pressure 148/74 (mmHg) O2 Sat by Pulse 98 Oximetry 11/28/17 11/28/17 11/28/17 09:41 11:16 13:18 Temperature 98.6 F Pulse Rate 96 Respiratory 22 14 18 Rate Blood Pressure 120/73 (mmHg) O2 Sat by Pulse 99 Oximetry Oxygen Devices in Use Now: None Appearance: Pleasant gentleman lying in bed in NAD. Eyes: No Scleral Icterus Ears/Nose/Mouth/Throat: Mucous Membranes Moist Neck: Trachea Midline Respiratory: Symmetrical Chest Expansion and Respiratory Effort, Clear to Auscultation Cardiovascular: RRR - Normal S1 and S2 Abdominal: NL Sounds; No Tenderness; No Distention Neurological: Alert and Oriented x 3, NL Muscle Strength and Tone Result Diagrams: 11/27/17 05:40 11/28/17 05:10 Assess/Plan/Problems-Billing Assessment: Mr Neville is a67yo M with PMH of HTN, schizoaffective disorder, hypothyroidism , hypogonadism, PVCs, paroxysmal Vtach, who presented to ED with c/o dizziness. - Patient Problems (1) Dizziness Comment: - Much improved today. - Suspect it was likely secondary to dehydration due to diarrheal illness. - D/c IVF. (2) Bowel obstruction Comment: - AxR showed findings suggestive of sigmoid colon obstruction, but CT showed none. - Advance diet as tolerated. (3) Gastroenteritis Comment: - Patient states many of the other residents at [facility] had a diarrheal illness and he thinks he got it too. - He has chronic diarrhea he manages with Imodium, but this episode was worse. - Continue to monitor. (4) Paroxysmal A-fib Comment: - Suspect brought on by dehydration and low magnesium. Converted to NSR spontaneously with hydration, lyte replacement, and his usual Metoprolol dose. - [id number] is 2 - patient has concerns about anticoagulation. At this point he 's back in NSR, with his CKD may be a candidate for Eliquis. He has an appointment scheduled with Dr. Sawant on 11/30 and would like to talk to him about it. - Continue to monitor on Telemetry. (5) Hyponatremia Comment: - Likely secondary to dehydration, resolved with IV hydration. (6) Hypogonadism Comment: - Patient states he takes Testosterone injections and usually feels great for the first 2 weeks. By the 3rd week he starts to feel weak, fatigued, his diarrhea gets worse, and he can barely wait for the next shot. Next one is due on 12/01. (7) Hypothyroidism Comment: - TSH 3.7. - Continue Levothyroxine. (8) Paroxysmal ventricular tachycardia Comment: - Follows with Dr. Sawant and had EP study with Dr. Fuentes. - Continue Metoprolol. (9) Schizoaffective disorder Comment: - Continue Clozapine. (10) DVT prophylaxis Comment: - SQ heparin. (11) Full code status Status and Disposition: Inpatient. Anticipate d/c in AM.
[2017-11-28] MEDS: CloZAPine TAB* 100 MG TAB PO SCH (20:12)
[2017-11-29] MEDS: Heparin VIAL(*) 5000 UNITS/ML VIAL (FIVE THOUSAND) SUBCUT SCH (05:27)
[2017-11-29] MEDS: Levothyroxine TAB* 125 MCG TAB PO SCH (05:29)
[2017-11-29] MEDS: Omeprazole CAP* 20 MG PO SCH (05:29)
[2017-11-29] MEDS ORDERED: Perflutren Lipid Microsphere* 3 ML VIAL ONE (08:07)
[2017-11-29] MEDS: Tamsulosin CAP* 0.4 MG PO SCH (09:13)
[2017-11-29] MEDS: Thiamine TAB* 100 MG TAB PO SCH (09:15)
[2017-11-29] MEDS: Folic Acid TAB* 1 MG PO SCH (09:16)
[2017-11-29] MEDS: Gabapentin CAP(*) 100 MG PO SCH (09:16)
[2017-11-29] MEDS: Multivitamins/Minerals TAB PO SCH (09:18)
[2017-11-29] MEDS: Lisinopril TAB* 10 MG PO SCH (09:19)
[2017-11-29] MEDS: Metoprolol Succinate XL TAB* 50 MG PO SCH (09:28)
--- NOTE | 2017-11-29 09:55 | ECHO ---
Patient: SCOTT TUCKER [facility] Rec#: [id number] : 1950 Date: 11/29/2017 Age: 67y Height: 182.88 cm / 72.0 in Weight: 95.25 kg / 209.9 lbs Sex: M BSA: 2.17 Room#: 452 Admit Date#: 11/26/2017 Type: Inpatient Referring: Ann Marie Robles Reading: Hector Dykes MD Equipment Superintendent: Jannie Parisi,PRISCILLACS,RDMS CC: Truong Sawant MD Transthoracic Echocardiogram Indication: AFIB BP: 142/80 HR: 96 Rhythm: NSR with PVCs Findings History: HTN, premature beats, paroxysmal Vtach Technical Comments: The study quality is fair. The study is technically limited due to poor apical windows. Left Ventricle: The left ventricular chamber size is normal. Mild concentric left ventricular hypertrophy is observed. Global left ventricular wall motion and contractility are within normal limits. There is normal left ventricular systolic function. The estimated ejection fraction is 55-60%. There is an E to A reversal in the mitral valve flow pattern suggestive of diastolic dysfunction. Left Atrium: The left atrium is mildly dilated. Right Ventricle: The right ventricular chamber size and systolic function are within normal limits. The right ventricle wall thickness is mildly increased. Right Atrium: The right atrium is mildly dilated. Aortic Valve: The aortic valve is trileaflet. Systolic excursion of the aortic valve is normal. There is no evidence of aortic regurgitation. There is no evidence of aortic stenosis. Mitral Valve: There is mitral annular calcification. The mitral valve leaflets are mildly thickened. There is trace to mild mitral regurgitation. There is no evidence of mitral stenosis. Tricuspid Valve: The tricuspid valve leaflets are normal. There is trace tricuspid regurgitation. Unable to estimate the right ventricular systolic pressure. Pulmonic Valve: The pulmonic valve structure is not well visualized. There is no evidence of pulmonic valve thickening. There is a trace pulmonic regurgitation. Pericardium: A trivial pericardial effusion is visualized. The pericardial effusion is seen adjacent to the right atrium. Aorta: The aortic root appears normal. There is no dilatation of the aortic arch. Pulmonary Artery: The main pulmonary artery appears normal. Venous: The inferior vena cava appears normal in size. There is a greater than 50% respiratory change in the inferior vena cava dimension. Contrast: Definity was used to optimize study. A total of 2 ml was used Summary: There was not any prior study for comparison. Conclusions Mild concentric left ventricular hypertrophy is observed. Global left ventricular wall motion and contractility are within normal limits. There is normal left ventricular systolic function. The estimated ejection fraction is 55-60%. There is no evidence of aortic stenosis. There is trace to mild mitral regurgitation. There is trace tricuspid regurgitation. Unable to estimate the right ventricular systolic pressure. A trivial pericardial effusion is visualized. Measurements Name Value Normal Range RVIDd (AP) 2D 2.8 cm (0.9 - 2.6) RVDdMajor (2D) 3.4 cm (2.2 - 4.4) RAd ISD 4CH 5.4 cm (3.4 - 4.9) RA (A4C)W 3.5 cm (2.9 - 4.6) IVSd (2D) 1.2 cm (0.6 - 1) LVPWd (2D) 1.2 cm (0.6 - 1) LVIDd (2D) 5.1 cm (3.6 - 5.4) LVIDs (2D) 3.3 cm - LV FS (2D) 35 % (25 - 45) Aortic Annulus 2.2 cm (1.4 - 2.6) Ao root diameter (2D) 3.4 cm (2.1 - 3.5) Ascending Ao 3.3 cm (2.1 - 3.4) Aortic arch 2.9 cm (1.8 - 3.4) LA dimension (AP) 2D 3.4 cm (2.3 - 3.8) LAd ISD 4CH 6.3 cm (2.9 - 5.3) LA ISD 4CH W 3.8 cm (2.5 - 4.5) Name Value Normal Range LA ESV SP 4CH (A/L) 77.85 ml - LA ESV SP 2CH (A/L) 59.54 ml - LA ESV BP (A/L) 75.68 ml - LA ESV BP (A/L) index 35 ml/m2 - LA ESV SP 4CH (MOD) 69.16 ml - LA ESV SP 2CH (MOD) 56.87 ml - Name Value Normal Range MV E-wave Vmax 0.6 m/sec - MV deceleration time 113 msec - MV A-wave Vmax 1 m/sec - MV E:A ratio 0.96 ratio - LV septal e' Vmax 0.07 m/sec - LV lateral e' Vmax 0.06 m/sec - LV E:e' septal ratio 8.6 ratio - LV E:e' lateral ratio 12 ratio - Name Value Normal Range AV Vmax 1.4 m/sec - AV VTI 34.1 cm - AV peak gradient 8 mmHg - AV mean gradient 4.8 mmHg - LVOT Vmax 0.8 m/sec - LVOT VTI 20.2 cm - LVOT peak gradient 2.6 mmHg - LVOT mean gradient 1.4 mmHg - NADIA Vmax 0.5 m/sec - Name Value Normal Range RAP 8 mmHg - IVC diameter 1.7 cm - Name Value Normal Range PV Vmax 0.8 m/sec - PV peak gradient 2.6 mmHg -
[2017-11-29 13:06] VITALS: BP 103/65
--- NOTE | 2017-12-01 02:24 | DS ---
CC: Dr. Romero; Dr. Sawant * DISCHARGE SUMMARY: DATE OF ADMISSION: 11/26/17 DATE OF DISCHARGE: 11/29/17 PRIMARY CARE PROVIDER: Dr. Romero. BLUNGER MACHINE OPERATOR: Dr. Sawant. DISCHARGE DIAGNOSES: 1. Dizziness, likely secondary to dehydration. 2. Gastroenteritis, likely viral. 3. Paroxysmal atrial fibrillation. 4. Hyponatremia. SECONDARY DIAGNOSES: 1. Hypertension. 2. Schizoaffective disorder. 3. Hypothyroidism. 4. Hypogonadism. 5. Paroxysmal ventricular tachycardia and premature ventricular contractions. MEDICATIONS: 1. Clozapine 300 mg p.o. at bedtime. 2. Famotidine 20 mg p.o. q.a.m. 3. Folic acid 1 mg p.o. daily. 4. Gabapentin 100 mg p.o. t.i.d. 5. Culturelle 1 capsule p.o. daily. 6. Levothyroxine 125 mcg p.o. q.a.m. 7. Lisinopril 20 mg p.o. daily. 8. Metoprolol succinate 50 mg p.o. daily. 9. Multivitamin 1 tablet p.o. daily. 10. Tamsulosin 0.4 mg p.o. daily. 11. Thiamine 100 mg p.o. daily. NEW MEDICATIONS: 1. Aspirin 81 mg p.o. daily. 2. Imodium 2 mg p.o. after each diarrheal bowel movement, maximum 8 mg a day. HOSPITAL COURSE: Mr. Neville is a 67-year-old male with a past medical history as stated above that presented to the emergency room with complaints of dizziness for the prior 3 days. The patient tells me that all the residents in his section at [facility] had some sort of diarrheal disease including him. For more details about his presentation, I refer you to his history and physical. The patient was found to be in atrial fibrillation in the emergency room with an EKG showing a heart rate of 101 with no ischemic changes and some PVCs. This was new when compared to his prior EKGs from 2015. The patient was admitted to the telemetry floor and and he promptly converted to sinus rhythm. The impression was that his AFib was likely secondary to his dehydration and electrolyte imbalance. The patient does have a CHADS score of 2 and we discussed risks and benefits of anticoagulation but he is afraid of side effects especially bleeding. Since he already converted to sinus rhythm, the patient did agree with an aspirin and he wants to discuss further options with his outpatient passenger screener Dr. Sawant. While in the hospital, the patient's diarrhea had already improved and his electrolyte imbalance and dehydration were corrected. Initially, his abdomen x-ray showed a picture suggestive of obstruction of the sigmoid colon but a CT of the abdomen and pelvis showed no obstruction only mild trabeculations of the bladder wall, atherosclerosis and trace bilateral pleural effusions. The patient had resolution of his dizziness. He was able to tolerate a solid diet and on telemetry he had no further episodes of AFib, only his usual frequent PVCs. The patient also feels that his symptoms are related to his testosterone level. He states that after his injections he usually feels great for the first 2 weeks, by the third week he starts to feel weak, fatigued, his chronic diarrhea gets worse and he can barely wait for his next shot. The next one is scheduled for 12/01/17, but he will talk further with his primary care provider about the dose and frequency of his testosterone injections. The patient felt much improved on 11/29/17 and he was felt to be stable for discharge at this time. PHYSICAL EXAMINATION: Vital Signs: Temperature 98.6, heart rate is 93, respiratory rate is 20, oxygen saturation is 97% on room air, blood pressure is 142/80. General: The patient is a pleasant elderly male, sitting up in the chair in no acute distress. CVS: Normal S1, S2. Regular rate and rhythm but with frequent PVCs. Chest: Breath sounds present bilaterally with no added sounds. Abdomen: Soft. Bowel sounds are present. Neuro: He is alert and oriented x3, able to move all 4 extremities. DIET: Regular diet. ACTIVITIES: As tolerated. DISPOSITION: Home. STATUS WHILE IN THE HOSPITAL: Inpatient. Please keep in mind this is a summarized version of this patient's hospital stay. If you need more information, please feel free to call me at [phone] or please obtain full medical records. TIME SPENT: Approximately 45 minutes was spent to complete this discharge. [id number]/CPS #: [id number] MTDD
== END 2017-11-29 13:42 | disposition home or self-care (01) | DRG 309 ==
LOC: ED 16:01 → MEDTELE 19:13
PROVIDERS: ADMIT Hospitalist; ATTEND Internal Medicine
DX: I48.0 Paroxysmal atrial fibrillation (principal); E87.1 Hypo-osmolality and hyponatremia; A08.4 Viral intestinal infection, unspecified; I47.2 Ventricular tachycardia; E86.0 Dehydration; I10 Essential (primary) hypertension; F25.9 Schizoaffective disorder, unspecified; E03.9 Hypothyroidism, unspecified; E29.1 Testicular hypofunction; E83.42 Hypomagnesemia; I49.3 Ventricular premature depolarization; N40.0 Benign prostatic hyperplasia without lower urinary tract symptoms; K21.9 Gastro-esophageal reflux disease without esophagitis; F10.21 Alcohol dependence, in remission; F20.9 Schizophrenia, unspecified; Z79.899 Other long term (current) drug therapy; Z82.49 Family history of ischemic heart disease and other diseases of the circulatory system; Z83.3 Family history of diabetes mellitus; Z87.891 Personal history of nicotine dependence
CPT/HCPCS: 36415; 70450; 71045; 74019; 74176; 80048; 80053; 83735; 84443; 84484; 85025; 85610; 93005; 93306; 99283; A9270-GY; J1200; J1644; J3475; J3490

== ENCOUNTER 2018-11-17 00:07 | Emergency (ER) | payer MEDICARE, MEDICAID ==
[2018-11-17] MEDS ORDERED: Aspirin 81 mg CHEW TAB* 81 MG TAB.CHEW PO ONE (01:18)
--- NOTE | 2018-11-17 01:18 | ED ---
HPI Chest Pain - HPI Summary HPI Summary: A 73 y/o male presents to [facility] with a chief complaint of intermittent chest pain lasting for the past 3-4 hours. At triage he rated his pain as a 6/10 in severity. His pain is worse when he inhales. He also c/o SOB. He lives in a long term community. - History of Current Complaint Chief Complaint: EDShortnessOfBreath Time Seen by Provider: 11/17/18 00:50 Hx Obtained From: Patient Onset/Duration: Started Hours Ago, Still Present Timing: Intermittent Initial Severity: Moderate Current Severity: Moderate Pain Intensity: 6 Pain Scale Used: 0-10 Numeric Chest Pain Radiates: No Character: Other: - unable to describe Aggravating Factor(s): Nothing Alleviating Factor(s): Nothing Associated Signs and Symptoms: Positive: Shortness of Breath. Negative: Fever - Additional Pertinent History Primary Care Physician: BRITTANY - Allergy/Home Medications Allergies/Adverse Reactions: Allergies Allergy/AdvReac Type Severity Reaction Status Date / Time chlordiazepoxide Allergy Unknown Unknown Verified 11/26/17 23:40 Reaction Details lithium Allergy Unknown Unknown Verified 11/26/17 23:40 Reaction Details oxcarbazepine Allergy Unknown Unknown Verified 11/26/17 23:40 Reaction Details PMH/Surg Hx/FS Hx/Imm Hx Endocrine/Hematology History: Reports: Hx Thyroid Disease Cardiovascular History: Reports: Hx Hypertension GI History: Reports: Hx Diverticulosis, Hx Gastroesophageal Reflux Disease Comment Only: Other GI Disorders - History of GERD History: Reports: Other Problems/Disorders - Chronic Kidney DX Sensory History: Reports: Hx Contacts or Glasses Denies: Hx Legally Blind, Hx Vision Problem, Hx Deafness, Hx Hearing Aid, Hx Hearing Problem, Other Sensory Impairments Opthamlomology History: Reports: Hx Contacts or Glasses Denies: Hx Legally Blind, Hx Vision Problem, Other Sensory Impairments Neurological History: Denies: Hx Dementia, Hx Developmental Delay, Hx Headaches, Hx Migraine, Hx Nerve Disease, Hx Seizures Psychiatric History: Reports: Hx Schizophrenia, Hx Bipolar Disorder Denies: Hx Eating Disorder, Hx of Violent Episodes Against Others - Surgical History Surgery Procedure, Year, and Place: surgery for diverticulitis 'many yrs ago' Infectious Disease History: No Infectious Disease History: Denies: Hx Clostridium Difficile, Hx Hepatitis, Hx Human Immunodeficiency Virus (HIV), Hx of Known/Suspected MRSA, Hx Shingles, Hx Tuberculosis, Hx Known/ Suspected VRE, Traveled Outside the [place] in Last 30 Days - Family History Known Family History: Positive: Other - paternal grandmother: schizophrenia Negative: Renal Disease - Social History Alcohol Use: None Hx Substance Use: No Substance Use Type: Reports: None Hx Tobacco Use: Yes Smoking Status (MU): Former Smoker Type: Cigarettes Amount Used/How Often: Patient has not smoked in the last 30 days Length of Time of Smoking/Using Tobacco: Patient has not smoked in the last 30 days Review of Systems Negative: Fever Positive: Chest Pain Positive: Shortness Of Breath All Other Systems Reviewed And Are Negative: Yes Physical Exam - Summary Physical Exam Summary: VITAL SIGNS: Reviewed. GENERAL: Patient is a well-developed and nourished MALE who is lying comfortable in the stretcher. Patient is not in any acute respiratory distress. HEAD AND FACE: No signs of trauma. No ecchymosis, hematomas or skull depressions. No sinus tenderness. EYES: PERRLA, EOMI x 2, No injected conjunctiva, no nystagmus. EARS: Hearing grossly intact. Ear canals and tympanic membranes are within normal limits. MOUTH: Oropharynx within normal limits. NECK: Supple, trachea is midline, no adenopathy, no JVD, no carotid bruit, no c- spine tenderness, neck with full ROM CHEST: Symmetric, no tenderness at palpation LUNGS: Decreased breath sounds bilaterally. CVS: Tachycardia, S1 and S2 present, no murmurs or gallops appreciated. ABDOMEN: Soft, non-tender. No signs of distention. No rebound no guarding, and no masses palpated. Bowel sounds are normal. EXTREMITIES: FROM in all major joints, no edema, no cyanosis or clubbing. NEURO: Alert and oriented x 3. No acute neurological deficits. Speech is normal and follows commands. SKIN: Dry and warm Triage Information Reviewed: Yes Vital Signs On Initial Exam: Initial Vitals Temp Pulse Resp BP Pulse Ox 98.5 F 103 18 133/86 98 11/17/18 00:13 11/17/18 00:13 11/17/18 00:13 11/17/18 00:13 11/17/18 00:13 Vital Signs Reviewed: Yes Diagnostics - Vital Signs Vital Signs Temp Pulse Resp BP Pulse Ox 11/17/18 01:01 101 127/81 96 11/17/18 01:00 101 96 06/06/19 00:13 98.5 F 103 18 133/86 98 - Laboratory Result Diagrams: 11/17/18 01:29 11/17/18 01:29 Lab Statement: Any lab studies that have been ordered have been reviewed, and results considered in the medical decision making process. - Radiology CXR Radiology Interpretation Completed By: ED Physician Summary of Radiographic Findings: No acute process. Pending official imaging report. - EKG 00:30 Cardiac Rate: Tachycardia - 100 bpm EKG Rhythm: Sinus Tachycardia Summary of EKG Findings: Sinus tachycardia at 100 bpm, Normal axis. Normal interval. No ischemic changes. Chest Pain Course/Dx - Course Course Of Treatment: A 73 y/o male presents to [facility] with a chief complaint of intermittent chest pain lasting for the past 3-4 hours. At triage he rated his pain as a 6/10 in severity. His pain is worse when he inhales. He also c/o SOB. The physical exam revealed tachycardia and decreased breath sounds bilaterally. EKG showed Sinus tachycardia at 100 bpm, Normal axis. Normal interval. No ischemic changes. In the ED course the patient was given Aspirin PO and Iodixanol IV. CXR showed no acute process. Bloodwork and chemistries obtained and are WNL. The patient will be discharged and follow up with his PCP. The patient is agreeable with this plan. - Diagnoses Provider Diagnoses: Chest wall pain Discharge - Sign-Out/Discharge Documenting (check all that apply): Patient Departure - DC Patient Received Moderate/Deep Sedation with Procedure: No - Discharge Plan Condition: Stable Disposition: HOME Patient Education Materials: Chest Wall Pain (ED) Referrals: Raulito Romero MD [Primary Care Provider] - (2-3 days) Additional Instructions: PLEASE RETURN TO THE ED IMMEDIATELY FOR WORSENING OR CONCERNING SYMPTOMS. - Billing Disposition and Condition Condition: STABLE Disposition: Home - Attestation Statements Document Initiated by Scribe: Yes Documenting Scribe: Wilfredo Ayala Provider For Whom [place] is Documenting (Include Credential): Alberto Swift MD Scribe Attestation: Wilfredo Canales scribed for Alberto Swift MD on 11/17/18 at 2056. Scribe Documentation Reviewed: Yes Provider Attestation: The documentation as recorded by the Wilfredo hewitt accurately reflects the service I personally performed and the decisions made by me, Alberto Swift MD Status of Scribe Document: Viewed
[2018-11-17 01:38] LABS: ABS Basophils 0.1 10^3/ul (0-0.2); ABS Eosinophils 0.2 10^3/ul (0-0.6); ABS Lymphocytes 0.7 10^3/ul (1.0-4.8); ABS Monocytes 1.2 10^3/ul (0-0.8); ABS Neutrophils 12.2 10^3/ul (1.5-7.7); Eosinophil % 1.4 %; Hematocrit 39 % (42-52); Hemoglobin 13.2 g/dL (14.0-18.0); Mean Corpuscular HGB Conc 34 g/dL (31-36); Mean Corpuscular Hemoglobin 30 pg (27-31); Mean Corpuscular Volume 90 fL (80-94); Mean Platelet Volume 7.3 fL (7.4-10.4); Platelet Count 225 10^3/uL (150-450); Red Blood Count 4.34 10^6 /uL (4.18-5.48); Red Cell Distribution Width 13 % (10.5-15); White Blood Count 14.4 10^3/uL (3.5-10.8)
[2018-11-17 01:54] LABS: Activated Partial Thrombo Time 35.4 seconds (26.0-38.0); INR 1.05 (0.82-1.09)
[2018-11-17 01:57] LABS: Albumin 3.9 g/dL (3.2-5.2); Albumin/Globulin Ratio 1.8 (1-3); BUN/Creatinine Ratio 13.1 (8-20); Calcium 9.2 mg/dL (8.6-10.3); EGFR African American 46.9 (>60); EGFR Non-African American 38.7 (>60); Globulin 2.2 g/dL (2-4); Magnesium 1.7 mg/dL (1.9-2.7); Potassium 4.1 mmol/L (3.5-5.0); Total Bilirubin 0.8 mg/dL (0.2-1.0); Total Protein 6.1 g/dL (6.4-8.9)
[2018-11-17] MEDS ORDERED: Iodixanol* (CONTRAST) 320 MG/ML 100 ML SDV IV ONE (02:12)
[2018-11-17 06:57] VITALS: BP 129/80
== END 2018-11-17 06:55 | disposition home or self-care (01) ==
LOC: ED 00:07
DX: R07.89 Other chest pain (principal); R94.31 Abnormal electrocardiogram [ECG] [EKG]; I12.9 Hypertensive chronic kidney disease with stage 1 through stage 4 chronic kidney disease, or unspecified chronic kidney disease; N18.9 Chronic kidney disease, unspecified; E07.9 Disorder of thyroid, unspecified; K21.9 Gastro-esophageal reflux disease without esophagitis; Z88.8 Allergy status to other drugs, medicaments and biological substances; F20.9 Schizophrenia, unspecified; F31.9 Bipolar disorder, unspecified; R06.02 Shortness of breath; Z87.891 Personal history of nicotine dependence
CPT/HCPCS: 36415; 71045; 80053; 83735; 83880; 84484; 85025; 85379; 85610; 85730; 93005; 99284; A9270-GY